=== PATIENT | male | born 1940 | race Caucasian/White ===

== ENCOUNTER 2016-11-06 11:28 | Inpatient (IN) | payer MEDICARE, BC ==
[2016-11-06] MEDS ORDERED: Zolpidem 5 MG Tab PO PRN (17:25)
[2016-11-06] MEDS ORDERED: Albuterol 6.7 GM Inhaler INH PRN (17:29)
[2016-11-06] MEDS ORDERED: Nitroglycerin 0.4 MG Tab.SL SL PRN (17:30)
--- NOTE | 2016-11-06 17:36 | PCM.HP ---
H&P History of Present Illness - General Date of Service: 11/06/16 Admit Problem/Dx: Admission Diagnosis/Problem Admission Diagnosis/Problem Weakness Source of Information: Patient - History of Present Illness Initial Comments - Free Text/Narative: transfer from acute care hospital status post left knee surgery Has moderate pain in the left knee, since the surgery, worse with movements, better with rest. associated left leg swelling. - Related Data Allergies/Adverse Reactions: Allergies Allergy/AdvReac Type Severity Reaction Status Date / Time cefuroxime [From Ceftin] Allergy Mild Nausea and Verified 11/06/16 12:58 Vomiting antifungal cream Allergy Hives Uncoded 11/06/16 12:58 dust mite extract Allergy Shortness Uncoded 11/06/16 12:58 of Breath seasonal Allergy Shortness Uncoded 11/06/16 12:58 of Breath Home Medications: Home Meds Allopurinol [Allopurinol] 300 mg PO DAILY 02/12/15 [History] Furosemide [Furosemide] 40 mg PO DAILY 02/12/15 [History] Indapamide [Indapamide] 1 tab PO DAILY 02/12/15 [History] Insulin Aspart [NovoLOG] 10 unit SQ ASDIRECTED 02/12/15 [History] Insulin Detemir [Levemir] 40 unit SQ BID 02/12/15 [History] Lisinopril/Hydrochlorothiazide [Lisinopril-Hctz 20-12.5 mg Tab] 1 tab PO DAILY 02/12/15 [History] Metoprolol Succinate [Toprol XL] 50 mg PO DAILY 02/12/15 [History] Simvastatin [Simvastatin] 40 mg PO DAILY 02/12/15 [History] Spironolactone [Spironolactone] 1 tab PO DAILY 02/12/15 [History] Tamsulosin HCl [Tamsulosin HCl] 1 cap PO BEDTIME 02/12/15 [History] metFORMIN [Glucophage] 1 tab PO BID 02/12/15 [History] Rivaroxaban [Xarelto] 10 mg PO DAILY 10/21/15 [History] Fluticasone Propionate [Flovent HFA 110 MCG] 2 puff INH BID 08/03/16 [History] Ascorbic Acid [Vitamin C] 100 mg PO DAILY 11/06/16 [History] Calcium Carb & Citrate/Vit D3 [Calcium + D3 ER Tablet] 1 tab PO DAILY 11/06/16 [ History] Ferrous Sulfate [Iron] 1 tab PO DAILY 11/06/16 [History] Fluticasone Propionate [Flonase] 1 spray INH DAILY 11/06/16 [History] Gabapentin [Neurontin] 300 mg PO BEDTIME 11/06/16 [History] Insulin Aspart [NovoLOG] 10 units SUBCUT TID 11/06/16 [History] Lutein/Minerals/Vit A,C & E [Ocuvite] 1 tab PO DAILY 11/06/16 [History] Melatonin 1 mg PO BEDTIME PRN 11/06/16 [History] Morphine [MS Contin] 15 mg PO Q12HR 11/06/16 [History] Nitroglycerin [Nitrostat] 0.4 mg SL .Q5MIN 11/06/16 [History] Sennosides [Senna] 1 tab PO BID 11/06/16 [History] metFORMIN [Glucophage XR] 500 mg PO WITHDINNER 11/06/16 [History] Past Medical History HEENT History: Reports: Cataract, Glaucoma, Hard of Hearing, Impaired Vision Cardiovascular History: Reports: Hypertension, Stents Respiratory History: Reports: Asthma, COPD Genitourinary History: Reports: Diabetic Nephropathy Musculoskeletal History: Reports: Arthritis, Fracture Neurological History: Reports: None Psychiatric History: Reports: None Endocrine/Metabolic History: Reports: Diabetes, Type II Hematologic History: Reports: Blood Transfusion(s) Immunologic History: Reports: None Oncologic (Cancer) History: Reports: None Dermatologic History: Reports: None - Infectious Disease History Infectious Disease History: Reports: Chicken Pox - Past Surgical History Head Surgeries/Procedures: Reports: None HEENT Surgical History: Reports: Cataract Surgery Cardiovascular Surgical History: Reports: None Respiratory Surgical History: Reports: Lung Biopsies GI Surgical History: Reports: Colonoscopy, Hernia Repair/Other Neurological Surgical History: Reports: Scoliosis Oncologic Surgical History: Reports: None Dermatological Surgical History: Reports: None Social & Family History - Family History Family Medical History: Noncontributory - Tobacco Use Smoking Status *Q: Former Smoker Years of Tobacco use: 30 Packs/Tins Daily: 2 Used Tobacco, but Quit: Yes Month Tobacco Last Used: May Second Hand Smoke Exposure: Yes - Caffeine Use Caffeine Use: Reports: Coffee - Alcohol Use Days Per Week of Alcohol Use: 7 Number of Drinks Per Day: 1 Total Drinks Per Week: 7 Date of Last Drink: 10/25/16 - Recreational Drug Use Recreational Drug Use: No H&P Review of Systems - Review of Systems: Review Of Systems: See Below General: Denies: Fever Cardiovascular: Denies: Chest Pain Gastrointestinal: Denies: Abdominal Pain Psychiatric: Denies: Confusion Exam - Exam Exam: See Below - Vital Signs Vital Signs: Last Vital Signs Temp 37.6 C 11/06/16 16:18 Pulse 86 11/06/16 16:18 Resp 20 11/06/16 16:18 BP 135/51 L 11/06/16 16:18 Pulse Ox 98 11/06/16 16:18 Weight: 98.974 kg - Exam Quality Assessment: No: Supplemental Oxygen General: Alert, Oriented Neck: Supple Lungs: Normal Respiratory Effort, Decreased Breath Sounds, Wheezing (mild bilateral) Cardiovascular: Regular Rate, Regular Rhythm Abdomen: Normal Bowel Sounds, Soft Extremities: Edema (left leg1+) Skin: Warm, Other (left knee dressing) Neuro Extensive - Mental Status: Alert, Oriented x3, Normal Mood/Affect, Normal Cognition *Q Meaningful Use (ADM) - VTE *Q VTE Criteria *Q: - Stroke *Q Stroke Criteria *Q: - AMI *Q AMI Criteria *Q: - Problem List (1) Status post knee surgery SNOMED Code(s): 142149419, 221972574 ICD Code: Z98.890 - OTHER SPECIFIED POSTPROCEDURAL STATES Status: Acute Current Visit: Yes (2) Diabetes SNOMED Code(s): 49783613 ICD Code: E11.9 - TYPE 2 DIABETES MELLITUS WITHOUT COMPLICATIONS Status: Acute Current Visit: Yes (3) Coronary artery disease SNOMED Code(s): 80819563 ICD Code: I25.10 - ATHSCL HEART DISEASE OF [place] CORONARY ARTERY W/O ANG PCTRS Status: Acute Current Visit: Yes (4) COPD (chronic obstructive pulmonary disease) SNOMED Code(s): 63484702 ICD Code: J44.9 - CHRONIC OBSTRUCTIVE PULMONARY DISEASE, UNSPECIFIED Status : Acute Current Visit: Yes Problem List Initiated/Reviewed/Updated: Yes Orders Last 24hrs: Active Orders 24 hr Category Date Time Status Patient Status [ADT] Routine ADT 11/06/16 17:25 Active Antiembolic Devices [RC] PER UNIT ROUTINE Care 11/06/16 17:27 Active Oxygen Therapy [RC] PRN Care 11/06/16 17:25 Active RT Post Treatment Assessment [RC] Click To Edit Care 11/06/16 17:29 Active RT Pre-Treatment Assessment [RC] Click To Edit Care 11/06/16 17:29 Active Up With Assistance [RC] ASDIRECTED Care 11/06/16 17:25 Active VTE/DVT Education [RC] PER UNIT ROUTINE Care 11/06/16 17:25 Active Vital Signs [RC] QSHIFT Care 11/06/16 17:25 Active OT Evaluation and Treatment [CONS] Routine Cons 11/06/16 17:25 Active PT Evaluation and Treatment [CONS] Routine Cons 11/06/16 17:25 Active Consistent Carbohydrate Diet [DIET] Diet 11/06/16 Breakfast Active Acetaminophen [Tylenol] Med 11/06/16 17:25 Active 650 mg PO Q4H PRN Albuterol [Proventil HFA] Med 11/06/16 17:29 Ordered 6.7 gm INH Q4H PRN Allopurinol [Zyloprim] Med 11/07/16 09:00 Ordered 300 mg PO DAILY Ascorbic Acid [Vitamin C] Med 11/07/16 09:00 Ordered 100 mg PO DAILY Ferrous Sulfate Med 11/07/16 09:00 Ordered DOSE mg PO DAILY Fluticasone Propionate [Flonase] Med 11/07/16 09:00 Ordered DOSE gm NASBOTH DAILY Fluticasone Propionate [Flovent HFA 110 MCG] Med 11/06/16 21:00 Ordered 2 puff INH BID Furosemide [Lasix] Med 11/07/16 09:00 Ordered 40 mg PO DAILY Gabapentin [Neurontin] Med 11/06/16 21:00 Ordered 300 mg PO BEDTIME Indapamide Med 11/07/16 09:00 Ordered DOSE mg PO DAILY Insulin Aspart [NovoLOG] Med 11/06/16 21:00 Ordered 10 unit SUBCUT TID Insulin Detemir Med 11/06/16 21:00 Ordered 40 unit SQ BID Lisinopril/Hydrochlorothiazide [Lisinopril-Hctz 20-12.5 Med 11/07/16 09:00 Ordered mg Tab] 1 tab PO DAILY Lutein/Minerals/Vit A,C & E [I-[place]] Med 11/07/16 09:00 Ordered DOSE each PO DAILY Metoprolol Succinate [Toprol XL] Med 11/07/16 09:00 Ordered 50 mg PO DAILY Mometasone/Formoterol [Dulera 200-5 MCG] Med 11/06/16 18:00 Ordered 2 puff IH BIDRT Morphine [MS Contin] Med 11/06/16 21:00 Ordered 15 mg PO Q12HR Nitroglycerin [Nitrostat] Med 11/06/16 17:30 Ordered 0.4 mg SL .Q5MIN Rivaroxaban [Xarelto] Med 11/07/16 09:00 Ordered 10 mg PO DAILY Sennosides [Senna] Med 11/06/16 21:00 Ordered 1 tab PO BID Simvastatin [Zocor] Med 11/07/16 09:00 Ordered 40 mg PO DAILY Spironolactone [Aldactone] Med 11/07/16 09:00 Ordered DOSE mg PO DAILY Tamsulosin [Flomax] Med 11/06/16 21:00 Ordered DOSE mg PO BEDTIME Zolpidem [Ambien] Med 11/06/16 17:25 Ordered 5 mg PO BEDTIME PRN oxyCODONE Med 11/06/16 17:23 Ordered 5 mg PO Q6H PRN Antiembolic Hose [OM.PC] Per Unit Routine Oth 11/06/16 17:26 Ordered Resuscitation Status Routine Resus Stat 11/06/16 17:25 Ordered Medication Orders Acetaminophen (Tylenol) 650 mg PO Q4H PRN PRN Reason: Pain (Mild 1-3)/fever Albuterol (Proventil Hfa) 6.7 gm INH Q4H PRN PRN Reason: Shortness of Breath Allopurinol (Zyloprim) 300 mg PO DAILY [facility] Ferrous Sulfate (Ferrous Sulfate) mg PO DAILY [facility] Fluticasone Propionate (Flonase) gm NASBOTH DAILY [facility] Furosemide (Lasix) 40 mg PO DAILY [facility] Gabapentin (Neurontin) 300 mg PO BEDTIME [facility] Indapamide (Indapamide) mg PO DAILY [facility] Insulin Aspart (Novolog) 10 unit SUBCUT TID [facility] Metoprolol Succinate (Toprol Xl) 50 mg PO DAILY [facility] Mometasone Furoate/Formoterol Fumar (Dulera 200-5 Mcg) 2 puff IH BIDRT [facility] Morphine Sulfate (Ms Contin) 15 mg PO Q12HR [facility] Multivitamins/Minerals (I-[place]) each PO DAILY [facility] Nitroglycerin (Nitrostat) 0.4 mg SL .Q5MIN [facility] Non-Formulary Medication (Ascorbic Acid [Vitamin C]) 100 mg PO DAILY [facility] Non-Formulary Medication (Fluticasone Propionate [Flovent Hfa 110 Mcg]) 2 puff INH BID [facility] Non-Formulary Medication (Insulin Detemir) 40 unit SQ BID [facility] Non-Formulary Medication (Lisinopril/Hydrochlorothiazide [Lisinopril-Hctz 20- 12.5 Mg Tab]) 1 tab PO DAILY [facility] Non-Formulary Medication (Sennosides [Senna]) 1 tab PO BID [facility] Oxycodone HCl (Oxycodone) 5 mg PO Q6H PRN PRN Reason: Pain Rivaroxaban (Xarelto) 10 mg PO DAILY [facility] Simvastatin (Zocor) 40 mg PO DAILY [facility] Spironolactone (Aldactone) mg PO DAILY [facility] Tamsulosin HCl (Flomax) mg PO BEDTIME [facility] Zolpidem Tartrate (Ambien) 5 mg PO BEDTIME PRN PRN Reason: Sleep Assessment/Plan Comment:: Status post left knee surgery Pain management with MSContin 15 mg BID, Neurontin, and p.r.n. oxycodone as needed DVT prophylaxis with xarelto COPD Use dulera Albuterol inhaler as needed Chronic kidney disease Baseline creatinine 1.5 Follow periodically, continue diuretics Coronary artery disease Resume aspirin when stopping the xarelto Treat with statin, metoprolol Diabetes Hold metformin Manage with Levemir Meal time time aspart Use supplemental insulin as needed Hypertension Manage with Lisinopril, metoprolol and hydrochlorothiazide, spironolactone Postoperative acute blood loss anemia Received a blood transfusion prior to admission to swing bed Recheck hemoglobin periodically
[2016-11-06] MEDS: Formoterol/Mometasone 200-5 MCG 8.8 GM Inhaler IH SCH (17:49)
[2016-11-06] MEDS: Insulin Aspart 100 Units/ML 3 ML Pen SUBCUT SCH (17:50)
[2016-11-06] MEDS ORDERED: SENNOSIDES PO SCH (21:00)
[2016-11-06] MEDS ORDERED: FLUTICASONE PROPIONATE INH SCH (21:00)
[2016-11-06] MEDS: Tamsulosin 0.4 MG Cap.ER PO SCH (21:43)
[2016-11-06] MEDS: Morphine 15 MG Tab.ER PO SCH (21:43)
[2016-11-06] MEDS: Gabapentin 300 MG Cap PO SCH (21:43)
[2016-11-06] MEDS: Simvastatin 40 MG Tab PO SCH (21:44)
[2016-11-06] MEDS: Insulin Detemir 100 Units/ML 3 ML Pen SUBCUT SCH (21:45)
[2016-11-06] MEDS: Acetaminophen 325 MG Tab PO PRN (21:51)
[2016-11-07] MEDS: oxyCODONE 5 MG Tab PO PRN ×3 (03:04→17:11)
[2016-11-07] MEDS: Formoterol/Mometasone 200-5 MCG 8.8 GM Inhaler IH SCH ×2 (07:44→17:15)
[2016-11-07] MEDS: Acetaminophen 325 MG Tab PO PRN ×3 (07:55→21:05)
[2016-11-07] MEDS ORDERED: ASCORBIC ACID 100 MG PO SCH (09:00)
[2016-11-07] MEDS: Insulin Aspart 100 Units/ML 3 ML Pen SUBCUT SCH ×6 (09:08→17:14)
[2016-11-07] MEDS: Insulin Detemir 100 Units/ML 3 ML Pen SUBCUT SCH ×2 (09:12→21:02)
[2016-11-07] MEDS: Ferrous Sulfate 325 MG Tab PO SCH (09:15)
[2016-11-07] MEDS: Indapamide 2.5 MG Tab PO SCH (09:15)
[2016-11-07] MEDS: Allopurinol 300 MG Tab PO SCH (09:16)
[2016-11-07] MEDS: Rivaroxaban 10 MG Tab PO SCH (09:16)
[2016-11-07] MEDS: Spironolactone 25 MG Tab PO SCH (09:17)
[2016-11-07] MEDS: Morphine 15 MG Tab.ER PO SCH ×2 (09:17→21:00)
[2016-11-07] MEDS: Lutein/Minerals/Vit A,C & E Tab PO SCH (09:17)
[2016-11-07] MEDS: Furosemide 40 MG Tab PO SCH (09:17)
[2016-11-07] MEDS: Lisinopril 20 MG Tab PO SCH (09:20)
[2016-11-07] MEDS: Hydrochlorothiazide 25 MG Tab PO SCH (09:21)
[2016-11-07] MEDS: Metoprolol Succinate 50 MG Tab.ER PO SCH (09:21)
[2016-11-07] MEDS: Fluticasone Propionate Nasal Spray 16 GM Bottle NASBOTH SCH (09:23)
[2016-11-07] MEDS: Tamsulosin 0.4 MG Cap.ER PO SCH (21:00)
[2016-11-07] MEDS: Gabapentin 300 MG Cap PO SCH (21:01)
[2016-11-07] MEDS: Simvastatin 40 MG Tab PO SCH (21:01)
[2016-11-08] MEDS: oxyCODONE 5 MG Tab PO PRN ×3 (02:35→21:35)
[2016-11-08] MEDS: Formoterol/Mometasone 200-5 MCG 8.8 GM Inhaler IH SCH ×2 (07:54→17:53)
[2016-11-08] MEDS: Insulin Aspart 100 Units/ML 3 ML Pen SUBCUT SCH ×6 (08:11→17:54)
[2016-11-08] MEDS: Insulin Detemir 100 Units/ML 3 ML Pen SUBCUT SCH ×2 (08:12→21:36)
[2016-11-08] MEDS: Metoprolol Succinate 50 MG Tab.ER PO SCH (08:43)
[2016-11-08] MEDS: Allopurinol 300 MG Tab PO SCH (08:43)
[2016-11-08] MEDS: Ferrous Sulfate 325 MG Tab PO SCH (08:43)
[2016-11-08] MEDS: Spironolactone 25 MG Tab PO SCH (08:43)
[2016-11-08] MEDS: Morphine 15 MG Tab.ER PO SCH ×2 (08:44→21:34)
[2016-11-08] MEDS: Lisinopril 20 MG Tab PO SCH (08:44)
[2016-11-08] MEDS: Hydrochlorothiazide 25 MG Tab PO SCH (08:46)
[2016-11-08] MEDS: Lutein/Minerals/Vit A,C & E Tab PO SCH (08:46)
[2016-11-08] MEDS: Furosemide 40 MG Tab PO SCH (08:46)
[2016-11-08] MEDS: Rivaroxaban 10 MG Tab PO SCH (08:46)
[2016-11-08] MEDS: Indapamide 2.5 MG Tab PO SCH (08:46)
[2016-11-08] MEDS: Fluticasone Propionate Nasal Spray 16 GM Bottle NASBOTH SCH (08:48)
[2016-11-08] MEDS: Acetaminophen 325 MG Tab PO PRN ×2 (09:48→20:16)
[2016-11-08] MEDS: Simvastatin 40 MG Tab PO SCH (21:33)
[2016-11-08] MEDS: Gabapentin 300 MG Cap PO SCH (21:35)
[2016-11-08] MEDS: Tamsulosin 0.4 MG Cap.ER PO SCH (21:36)
[2016-11-09] MEDS: oxyCODONE 5 MG Tab PO PRN ×3 (03:42→17:24)
[2016-11-09] MEDS: Acetaminophen 325 MG Tab PO PRN (03:43)
[2016-11-09] MEDS: Formoterol/Mometasone 200-5 MCG 8.8 GM Inhaler IH SCH ×2 (06:16→17:26)
[2016-11-09] MEDS: Insulin Detemir 100 Units/ML 3 ML Pen SUBCUT SCH ×2 (09:34→22:08)
[2016-11-09] MEDS: Insulin Aspart 100 Units/ML 3 ML Pen SUBCUT SCH ×6 (09:35→17:30)
[2016-11-09] MEDS: Rivaroxaban 10 MG Tab PO SCH (09:37)
[2016-11-09] MEDS: Lutein/Minerals/Vit A,C & E Tab PO SCH (09:37)
[2016-11-09] MEDS: Spironolactone 25 MG Tab PO SCH (09:37)
[2016-11-09] MEDS: Ferrous Sulfate 325 MG Tab PO SCH (09:37)
[2016-11-09] MEDS: Furosemide 40 MG Tab PO SCH (09:37)
[2016-11-09] MEDS: Allopurinol 300 MG Tab PO SCH (09:37)
[2016-11-09] MEDS: Hydrochlorothiazide 25 MG Tab PO SCH (09:37)
[2016-11-09] MEDS: Morphine 15 MG Tab.ER PO SCH ×2 (09:38→22:02)
[2016-11-09] MEDS: Metoprolol Succinate 50 MG Tab.ER PO SCH (09:47)
[2016-11-09] MEDS: Indapamide 2.5 MG Tab PO SCH (09:48)
[2016-11-09] MEDS: Lisinopril 20 MG Tab PO SCH (09:48)
[2016-11-09] MEDS: Fluticasone Propionate Nasal Spray 16 GM Bottle NASBOTH SCH (09:51)
[2016-11-09] MEDS: Simvastatin 40 MG Tab PO SCH (22:03)
[2016-11-09] MEDS: Tamsulosin 0.4 MG Cap.ER PO SCH (22:03)
[2016-11-09] MEDS: Gabapentin 300 MG Cap PO SCH (22:04)
[2016-11-09] MEDS: MELATONIN 10 MG PO PRN (22:06)
[2016-11-10] MEDS: Formoterol/Mometasone 200-5 MCG 8.8 GM Inhaler IH SCH ×2 (06:18→18:17)
[2016-11-10 07:05] LABS: CHLORIDE,CL 95 mmol/L (101-111); SODIUM,NA 134 mmol/L (135-145)
[2016-11-10] MEDS: Morphine 15 MG Tab.ER PO SCH ×2 (09:01→20:18)
[2016-11-10] MEDS: Lutein/Minerals/Vit A,C & E Tab PO SCH (09:02)
[2016-11-10] MEDS: Allopurinol 300 MG Tab PO SCH (09:03)
[2016-11-10] MEDS: Rivaroxaban 10 MG Tab PO SCH (09:03)
[2016-11-10] MEDS: Ferrous Sulfate 325 MG Tab PO SCH (09:03)
[2016-11-10] MEDS: Spironolactone 25 MG Tab PO SCH (09:04)
[2016-11-10] MEDS: Insulin Aspart 100 Units/ML 3 ML Pen SUBCUT SCH ×6 (09:04→18:13)
[2016-11-10] MEDS: Fluticasone Propionate Nasal Spray 16 GM Bottle NASBOTH SCH (09:06)
[2016-11-10] MEDS: Furosemide 40 MG Tab PO SCH (09:07)
[2016-11-10] MEDS: Hydrochlorothiazide 25 MG Tab PO SCH (09:07)
[2016-11-10] MEDS: Metoprolol Succinate 50 MG Tab.ER PO SCH (09:08)
[2016-11-10] MEDS: Indapamide 2.5 MG Tab PO SCH (09:08)
[2016-11-10] MEDS: Insulin Detemir 100 Units/ML 3 ML Pen SUBCUT SCH ×2 (09:09→21:34)
[2016-11-10] MEDS: Lisinopril 20 MG Tab PO SCH (09:09)
[2016-11-10] MEDS: oxyCODONE 5 MG Tab PO PRN ×2 (10:32→16:41)
--- NOTE | 2016-11-10 12:24 | PCM.PN ---
- General Info Date of Service: 11/10/16 Admission Dx/Problem (Free Text): Admission Diagnosis/Problem Admission Diagnosis/Problem Weakness Subjective Update: 76-year-old gentleman status post left knee surgery. Admitted to swing bed with weakness. The patient had Welch catheter for urinary retention and difficulty with ambulation. He continues to have moderate pain in the left knee, worse with activity, better with rest. Has been using morphine and oxycodone. Never episodes of confusion during the night, but clears up during the day. No chest pain, no shortness of breath, no fever or chills. Functional Status: Reports: tolerating diet, ambulating - Review of Systems General: Reports: Weakness. Denies: Fever Pulmonary: Denies: shortness of breath, wheezing Cardiovascular: Denies: Chest Pain Gastrointestinal: Denies: Abdominal pain Genitourinary: Reports: other (welch) - Patient Data Vitals - most recent: Last Vital Signs Temp 37.2 C 11/10/16 08:15 Pulse 67 11/10/16 09:08 Resp 20 11/10/16 08:15 BP 150/56 H 11/10/16 09:09 Pulse Ox 97 11/10/16 08:15 Weight - most recent: 98.974 kg I&O - last 24 hours: Intake & Output 11/09/16 11/10/16 11/10/16 22:59 06:59 14:59 Intake Total 800 600 Output Total 1650 1300 Balance -850 -700 Lab Results last 24 hrs: Laboratory Results - last 24 hr 11/09/16 11/09/16 11/10/16 Range/Units 17:12 20:56 06:20 WBC 6.2 (5.0-10.0) 10^3/uL RBC 3.13 L (4.6-6.2) 10^6/uL Hgb 9.6 L (14.0-18.0) g/dL Hct 29.6 L (40.0-54.0) % MCV 94.6 (80-100) fL MCH 30.7 (27.0-34.0) pg MCHC 32.4 L (33.0-35.0) g/dL Plt Count 203 (150-450) 10^3/uL Neut % (Auto) 66.4 (42.2-75.2) % Lymph % (Auto) 16.9 L (20.5-50.1) % [place] % (Auto) 12.7 H (2-8) % Eos % (Auto) 2.4 (1.0-3.0) % Baso % (Auto) 1.6 H (0.0-1.0) % Add Manual Diff Yes Neutrophils % (Manual) 78 % Lymphocytes % (Manual) 15 % Monocytes % (Manual) 6 % Eosinophils % (Manual) 1 % Sodium (135-145) mmol/L Potassium (3.6-5.0) mmol/L Chloride (101-111) mmol/L Carbon Dioxide (21.0-31.0) mmol/L Anion Gap BUN (7-18) mg/dL Creatinine (0.6-1.3) mg/dL Est Cr Clr Drug Dosing mL/min Estimated GFR (MDRD) Glucose (74-105) mg/dL POC Glucose 104 264 H (83-110) mg/dl Calcium (8.4-10.2) mg/dl Total Bilirubin (0.2-1.0) mg/dL Direct Bilirubin (0.0-0.2) mg/dL Indirect Bilirubin AST (10-42) IU/L ALT (10-60) IU/L Alkaline Phosphatase (42-121) IU/L Lactate Dehydrogenase (91-180) IU/L Total Protein (6.7-8.2) g/dl Albumin (3.2-5.5) g/dl Globulin Albumin/Globulin Ratio 11/10/16 11/10/16 11/10/16 Range/Units 06:20 07:42 11:42 WBC (5.0-10.0) 10^3/uL RBC (4.6-6.2) 10^6/uL Hgb (14.0-18.0) g/dL Hct (40.0-54.0) % MCV (80-100) fL MCH (27.0-34.0) pg MCHC (33.0-35.0) g/dL Plt Count (150-450) 10^3/uL Neut % (Auto) (42.2-75.2) % Lymph % (Auto) (20.5-50.1) % [place] % (Auto) (2-8) % Eos % (Auto) (1.0-3.0) % Baso % (Auto) (0.0-1.0) % Add Manual Diff Neutrophils % (Manual) % Lymphocytes % (Manual) % Monocytes % (Manual) % Eosinophils % (Manual) % Sodium 134 L (135-145) mmol/L Potassium 4.1 (3.6-5.0) mmol/L Chloride 95 L (101-111) mmol/L Carbon Dioxide 27.0 (21.0-31.0) mmol/L Anion Gap 16.1 BUN 29 H (7-18) mg/dL Creatinine 1.0 (0.6-1.3) mg/dL Est Cr Clr Drug Dosing 63.88 mL/min Estimated GFR (MDRD) > 60 Glucose 229 H (74-105) mg/dL POC Glucose 246 H 296 H (83-110) mg/dl Calcium 8.4 (8.4-10.2) mg/dl Total Bilirubin 0.7 (0.2-1.0) mg/dL Direct Bilirubin 0.2 (0.0-0.2) mg/dL Indirect Bilirubin 0.5 AST 39 (10-42) IU/L ALT 45 (10-60) IU/L Alkaline Phosphatase 80 (42-121) IU/L Lactate Dehydrogenase 188 H (91-180) IU/L Total Protein 6.5 L (6.7-8.2) g/dl Albumin 2.9 L (3.2-5.5) g/dl Globulin 3.6 Albumin/Globulin Ratio 0.81 Med Orders - Current: Current Medications Acetaminophen (Tylenol) 650 mg PO Q4H PRN PRN Reason: Pain (Mild 1-3)/fever Last Admin: 11/09/16 03:43 Dose: 650 mg Albuterol (Proventil Hfa) 0 gm INH Q4H PRN PRN Reason: Shortness of Breath Allopurinol (Zyloprim) 300 mg PO DAILY [facility] Last Admin: 11/10/16 09:03 Dose: 300 mg Ferrous Sulfate (Ferrous Sulfate) 325 mg PO DAILY [facility] Last Admin: 11/10/16 09:03 Dose: 325 mg Fluticasone Propionate (Flonase) 0 gm NASBOTH DAILY [facility] Last Admin: 11/10/16 09:06 Dose: 1 spray Furosemide (Lasix) 40 mg PO DAILY [facility] Last Admin: 11/10/16 09:07 Dose: 40 mg Gabapentin (Neurontin) 300 mg PO BEDTIME [facility] Last Admin: 11/09/16 22:04 Dose: 300 mg Hydrochlorothiazide (Hydrochlorothiazide) 12.5 mg PO DAILY [facility] Last Admin: 11/10/16 09:07 Dose: 12.5 mg Indapamide (Indapamide) 2.5 mg PO DAILY [facility] Last Admin: 11/10/16 09:08 Dose: 2.5 mg Insulin Aspart (Novolog) 10 unit SUBCUT TIDMEALS [facility] Last Admin: 11/10/16 09:04 Dose: 10 units Insulin Aspart (Novolog) 0 unit SUBCUT TIDAC [facility] PRN Reason: Protocol Last Admin: 11/10/16 09:05 Dose: 4 units Insulin Detemir (Levemir) 45 unit SUBCUT BID [facility] Lisinopril (Prinivil) 20 mg PO DAILY [facility] Last Admin: 11/10/16 09:09 Dose: 20 mg Metoprolol Succinate (Toprol Xl) 50 mg PO DAILY [facility] Last Admin: 11/10/16 09:08 Dose: 50 mg Mometasone Furoate/Formoterol Fumar (Dulera 200-5 Mcg) 2 puff IH BIDRT [facility] Last Admin: 11/10/16 06:18 Dose: 2 puff Morphine Sulfate (Ms Contin) 15 mg PO Q12HR [facility] Last Admin: 11/10/16 09:01 Dose: 15 mg Multivitamins/Minerals (I-[place]) 1 each PO DAILY [facility] Last Admin: 11/10/16 09:02 Dose: 1 each Nitroglycerin (Nitrostat) 0.4 mg SL .Q5MIN PRN PRN Reason: Chest Pain Nf Med 1 Each ( Melatonin [Melatonin ] 10 Mg) *Own Med 10 mg PO BEDTIME PRN PRN Reason: Sleep Last Admin: 11/09/16 22:06 Dose: 10 mg Oxycodone HCl (Oxycodone) 5 mg PO Q6H PRN PRN Reason: Pain Last Admin: 11/10/16 10:32 Dose: 5 mg Rivaroxaban (Xarelto) 10 mg PO DAILY [facility] Last Admin: 11/10/16 09:03 Dose: 10 mg Simvastatin (Zocor) 40 mg PO BEDTIME [facility] Last Admin: 11/09/16 22:03 Dose: 40 mg Spironolactone (Aldactone) 25 mg PO DAILY [facility] Last Admin: 11/10/16 09:04 Dose: 25 mg Tamsulosin HCl (Flomax) 0.4 mg PO BEDTIME [facility] Last Admin: 11/09/16 22:03 Dose: 0.4 mg Discontinued Medications Insulin Detemir (Levemir) 40 unit SUBCUT BID [facility] Last Admin: 11/10/16 09:09 Dose: 40 units Non-Formulary Medication (Ascorbic Acid [Vitamin C]) 100 mg PO DAILY [facility] Non-Formulary Medication (Fluticasone Propionate [Flovent Hfa 110 Mcg]) 2 puff INH BID [facility] Non-Formulary Medication (Sennosides [Senna]) 1 tab PO BID [facility] Zolpidem Tartrate (Ambien) 5 mg PO BEDTIME PRN PRN Reason: Sleep - Exam Quality Assessment: No: supplemental oxygen General: alert, oriented Neck: supple Lungs: Clear to auscultation, Normal respiratory effort Cardiovascular: Regular Rate, Regular Rhythm (Male) Exam: Other (welch) Extremities: no edema Skin: warm, dry, intact Psy/Mental Status: alert, normal affect, normal mood - Problem List & Annotations (1) Status post knee surgery SNOMED Code(s): 334829708, 353369523 Code(s): Z98.890 - OTHER SPECIFIED POSTPROCEDURAL STATES Status: Acute Current Visit: Yes (2) Diabetes SNOMED Code(s): 56367855 Code(s): E11.9 - TYPE 2 DIABETES MELLITUS WITHOUT COMPLICATIONS Status: Acute Current Visit: Yes (3) Coronary artery disease SNOMED Code(s): 04840099 Code(s): I25.10 - ATHSCL HEART DISEASE OF [place] CORONARY ARTERY W/O ANG PCTRS Status: Acute Current Visit: Yes (4) COPD (chronic obstructive pulmonary disease) SNOMED Code(s): 73417113 Code(s): J44.9 - CHRONIC OBSTRUCTIVE PULMONARY DISEASE, UNSPECIFIED Status : Acute Current Visit: Yes - Problem List Review Problem List Initiated/Reviewed/Updated: Yes - My Orders Last 24 Hours: My Active Orders 11/09/16 16:31 Melatonin [Melatonin] 10 mg PO BEDTIME PRN 11/10/16 06:20 FOLATE [REF] AM IRON PNL (FE, TIBC, [place], %SAT) [REF] AM VITAMIN B12 [REF] AM 11/10/16 12:09 Peripheral IV Discontinue [OM.PC] Routine 11/10/16 12:18 Urinary Catheter Removal [RC] Per Unit Routine Insulin Detemir [Levemir] 45 unit SUBCUT BID - Plan Plan:: Status post left knee surgery Pain management with MSContin 15 mg BID, Neurontin, and p.r.n. oxycodone as needed DVT prophylaxis with xarelto COPD Use dulera Albuterol inhaler as needed Chronic kidney disease Baseline creatinine 1.5 Follow periodically, continue diuretics Coronary artery disease Resume aspirin when stopping the xarelto Treat with statin, metoprolol Diabetes Uncontrolled Hold metformin Increase Levemir Meal time time aspart Use supplemental insulin as needed Hypertension Manage with Lisinopril, metoprolol and hydrochlorothiazide, spironolactone Postoperative acute blood loss anemia Received a blood transfusion prior to admission to swing bed Recheck hemoglobin periodically Check iron, folate, B12 Urinary retention Will try to remove Welch catheter now Follow for recurrence retention Confusion at night Likely delirium secondary to hospital stay and narcotic medications Try to decrease narcotics as pain is improving Discussed with daughter at bedside
[2016-11-10] MEDS: Acetaminophen 325 MG Tab PO PRN (14:55)
[2016-11-10] MEDS: Gabapentin 300 MG Cap PO SCH (20:16)
[2016-11-10] MEDS: Tamsulosin 0.4 MG Cap.ER PO SCH (20:17)
[2016-11-10] MEDS: Simvastatin 40 MG Tab PO SCH (20:17)
[2016-11-11] MEDS: oxyCODONE 5 MG Tab PO PRN ×3 (06:51→21:52)
[2016-11-11] MEDS: Insulin Aspart 100 Units/ML 3 ML Pen SUBCUT SCH ×6 (08:12→18:06)
[2016-11-11] MEDS: Formoterol/Mometasone 200-5 MCG 8.8 GM Inhaler IH SCH ×2 (08:17→19:25)
[2016-11-11] MEDS: Ferrous Sulfate 325 MG Tab PO SCH (09:19)
[2016-11-11] MEDS: Spironolactone 25 MG Tab PO SCH (09:19)
[2016-11-11] MEDS: Hydrochlorothiazide 25 MG Tab PO SCH (09:20)
[2016-11-11] MEDS: Lutein/Minerals/Vit A,C & E Tab PO SCH (09:22)
[2016-11-11] MEDS: Indapamide 2.5 MG Tab PO SCH (09:23)
[2016-11-11] MEDS: Rivaroxaban 10 MG Tab PO SCH (09:26)
[2016-11-11] MEDS: Metoprolol Succinate 50 MG Tab.ER PO SCH (09:27)
[2016-11-11] MEDS: Furosemide 40 MG Tab PO SCH (09:28)
[2016-11-11] MEDS: Allopurinol 300 MG Tab PO SCH (09:28)
[2016-11-11] MEDS: Morphine 15 MG Tab.ER PO SCH ×2 (09:29→20:25)
[2016-11-11] MEDS: Lisinopril 20 MG Tab PO SCH (09:31)
[2016-11-11] MEDS: Fluticasone Propionate Nasal Spray 16 GM Bottle NASBOTH SCH (09:35)
[2016-11-11] MEDS: Insulin Detemir 100 Units/ML 3 ML Pen SUBCUT SCH ×2 (09:36→21:26)
[2016-11-11] MEDS: Acetaminophen 325 MG Tab PO PRN ×2 (11:26→16:08)
[2016-11-11] MEDS: Simvastatin 40 MG Tab PO SCH (20:29)
[2016-11-11] MEDS: Tamsulosin 0.4 MG Cap.ER PO SCH (20:29)
[2016-11-11] MEDS: Gabapentin 300 MG Cap PO SCH (20:32)
[2016-11-11] MEDS: MELATONIN 10 MG PO PRN (21:53)
[2016-11-12] MEDS: oxyCODONE 5 MG Tab PO PRN ×2 (07:46→13:42)
[2016-11-12] MEDS: Insulin Aspart 100 Units/ML 3 ML Pen SUBCUT SCH ×6 (07:59→17:41)
[2016-11-12] MEDS: Formoterol/Mometasone 200-5 MCG 8.8 GM Inhaler IH SCH ×2 (08:03→17:40)
[2016-11-12] MEDS: Spironolactone 25 MG Tab PO SCH (09:34)
[2016-11-12] MEDS: Ferrous Sulfate 325 MG Tab PO SCH (09:35)
[2016-11-12] MEDS: Fluticasone Propionate Nasal Spray 16 GM Bottle NASBOTH SCH (09:35)
[2016-11-12] MEDS: Hydrochlorothiazide 25 MG Tab PO SCH (09:36)
[2016-11-12] MEDS: Indapamide 2.5 MG Tab PO SCH (09:37)
[2016-11-12] MEDS: Lutein/Minerals/Vit A,C & E Tab PO SCH (09:37)
[2016-11-12] MEDS: Furosemide 40 MG Tab PO SCH (09:38)
[2016-11-12] MEDS: Morphine 15 MG Tab.ER PO SCH ×2 (09:39→20:59)
[2016-11-12] MEDS: Lisinopril 20 MG Tab PO SCH (09:40)
[2016-11-12] MEDS: Metoprolol Succinate 50 MG Tab.ER PO SCH (09:40)
[2016-11-12] MEDS: Rivaroxaban 10 MG Tab PO SCH (09:41)
[2016-11-12] MEDS: Allopurinol 300 MG Tab PO SCH (09:42)
[2016-11-12] MEDS: Insulin Detemir 100 Units/ML 3 ML Pen SUBCUT SCH ×2 (09:43→21:08)
[2016-11-12] MEDS: Acetaminophen 325 MG Tab PO PRN ×2 (11:52→15:53)
[2016-11-12] MEDS: Tamsulosin 0.4 MG Cap.ER PO SCH (20:59)
[2016-11-12] MEDS: Gabapentin 300 MG Cap PO SCH (20:59)
[2016-11-12] MEDS: Simvastatin 40 MG Tab PO SCH (20:59)
[2016-11-13] MEDS: oxyCODONE 5 MG Tab PO PRN ×3 (06:04→21:00)
[2016-11-13] MEDS: Formoterol/Mometasone 200-5 MCG 8.8 GM Inhaler IH SCH ×2 (08:00→17:30)
[2016-11-13] MEDS: Insulin Aspart 100 Units/ML 3 ML Pen SUBCUT SCH ×6 (08:01→17:29)
[2016-11-13] MEDS: Indapamide 2.5 MG Tab PO SCH (09:48)
[2016-11-13] MEDS: Spironolactone 25 MG Tab PO SCH (09:48)
[2016-11-13] MEDS: Lutein/Minerals/Vit A,C & E Tab PO SCH (09:48)
[2016-11-13] MEDS: Morphine 15 MG Tab.ER PO SCH ×2 (09:49→20:52)
[2016-11-13] MEDS: Fluticasone Propionate Nasal Spray 16 GM Bottle NASBOTH SCH (09:49)
[2016-11-13] MEDS: Ferrous Sulfate 325 MG Tab PO SCH (09:49)
[2016-11-13] MEDS: Allopurinol 300 MG Tab PO SCH (09:50)
[2016-11-13] MEDS: Hydrochlorothiazide 25 MG Tab PO SCH (09:50)
[2016-11-13] MEDS: Furosemide 40 MG Tab PO SCH (09:50)
[2016-11-13] MEDS: Insulin Detemir 100 Units/ML 3 ML Pen SUBCUT SCH ×2 (09:51→21:34)
[2016-11-13] MEDS: Lisinopril 20 MG Tab PO SCH (09:51)
[2016-11-13] MEDS: Metoprolol Succinate 50 MG Tab.ER PO SCH (09:51)
[2016-11-13] MEDS: Rivaroxaban 10 MG Tab PO SCH (09:51)
[2016-11-13] MEDS: Tamsulosin 0.4 MG Cap.ER PO SCH (20:52)
[2016-11-13] MEDS: Simvastatin 40 MG Tab PO SCH (20:52)
[2016-11-13] MEDS: Gabapentin 300 MG Cap PO SCH (20:53)
[2016-11-14] MEDS: oxyCODONE 5 MG Tab PO PRN ×4 (03:10→23:18)
[2016-11-14] MEDS: Formoterol/Mometasone 200-5 MCG 8.8 GM Inhaler IH SCH ×2 (06:27→17:56)
[2016-11-14] MEDS: Insulin Aspart 100 Units/ML 3 ML Pen SUBCUT SCH ×6 (08:20→17:56)
[2016-11-14] MEDS: Insulin Detemir 100 Units/ML 3 ML Pen SUBCUT SCH ×2 (08:21→21:42)
[2016-11-14] MEDS: Hydrochlorothiazide 25 MG Tab PO SCH (08:22)
[2016-11-14] MEDS: Spironolactone 25 MG Tab PO SCH (08:22)
[2016-11-14] MEDS: Rivaroxaban 10 MG Tab PO SCH (08:23)
[2016-11-14] MEDS: Indapamide 2.5 MG Tab PO SCH (08:23)
[2016-11-14] MEDS: Lutein/Minerals/Vit A,C & E Tab PO SCH (08:23)
[2016-11-14] MEDS: Allopurinol 300 MG Tab PO SCH (08:24)
[2016-11-14] MEDS: Metoprolol Succinate 50 MG Tab.ER PO SCH (08:24)
[2016-11-14] MEDS: Furosemide 40 MG Tab PO SCH (08:24)
[2016-11-14] MEDS: Lisinopril 20 MG Tab PO SCH (08:24)
[2016-11-14] MEDS: Ferrous Sulfate 325 MG Tab PO SCH (08:24)
[2016-11-14] MEDS: Morphine 15 MG Tab.ER PO SCH ×2 (08:24→21:00)
[2016-11-14] MEDS: Fluticasone Propionate Nasal Spray 16 GM Bottle NASBOTH SCH (08:25)
[2016-11-14] MEDS: Acetaminophen 325 MG Tab PO PRN ×2 (13:12→19:54)
--- NOTE | 2016-11-14 13:34 | PN ---
DATE: 11/14/2016 SUBJECTIVE: Mr. Sebastien Huber is a 76-year-old male with a medical history significant for chronic obstructive pulmonary disease, chronic kidney disease, coronary artery disease, hypertension, and type 2 diabetes mellitus. He is status post left total knee arthroplasty and is admitted to swing bed for continued physical therapy and occupational therapy. For the last 24 hours, the patient continues to have pain to the left knee. He grades the pain as 4-5/10 in intensity, which gets aggravated on movement and ambulation relieved with pain medication, nonradiating type of pain, not associated with any nausea or vomiting. Denies any chest pain. No shortness of breath. No abdominal pain. No nausea. No vomiting. No diarrhea in the last 24 hours, REVIEW OF SYSTEMS: Cardiovascular, respiratory, gastrointestinal, neurology, constitutional were all evaluated. PHYSICAL EXAMINATION: Vital Signs: Temperature of 98.1, pulse of 68, respiratory rate of 20, blood pressure 131/43, saturating 95% on room air. General Appearance: The patient is well oriented to time, place, and person. Follows commands spontaneously. Cardiovascular System: S1, S2 heard with normal intensity. No gallops. Respiratory: Clear to auscultation bilaterally. No wheeze. No crepitations. Abdomen: Soft. Bowel sounds positive. Nontender. No rigidity. Extremities: No edema in bilateral lower extremities. Neurology: No gross focal neurological deficits. MEDICATIONS: Reviewed. Continue with: 1. Tylenol 650 every 4 hours as needed for pain. 2. Albuterol inhalation every 4 hours as needed. 3. Allopurinol 300 mg daily. 4. Ferrous sulfate 325 mg daily. 5. Lasix 40 mg daily. 6. Neurontin 300 mg at bedtime. 7. Hydrochlorothiazide 12.5 mg daily. 8. Indapamide 2.5 mg daily. 9. NovoLog 10 units 3 times a day. 10.Levemir 50 units twice a day. 11.Lisinopril 20 mg daily. 12.Metoprolol XL 50 mg daily. 13.Nitroglycerin 0.4 mg sublingual every 5 minutes as needed for chest pain. 14.Oxycodone 5 mg every 6 hours as needed for pain. 15.Xarelto 10 mg daily. 16.Zocor 40 mg at bedtime. 17.Spironolactone 25 mg daily. 18.Flomax 0.4 mg at bedtime. LABORATORY DATA: Reviewed. Blood sugar of 198-239 in the last 24 hours. ASSESSMENT: 1. Status post left total knee arthroplasty. 2. Hypertension. 3. Hyperlipidemia. 4. Type 2 diabetes mellitus, uncontrolled. 5. Coronary artery disease. 6. Chronic kidney disease. 7. Chronic obstructive pulmonary disease. 8. Acute anemia secondary to blood loss. PLAN: 1. Hypertension. The patient's blood pressure seems to be well controlled. He is noted to be on multiple antihypertensive medications. Continue the same. Try to avoid any hypotensive episodes. 2. Type 2 diabetes mellitus. He was on metformin at home. We had to hold the metformin while in the hospital, and he is currently on Levemir as he is noted to have elevated blood sugar. We will increase the Levemir to 50 units subcutaneous twice a day and continue with supplemental scale insulin NovoLog. He is also noted to be on NovoLog with each meals. Continue the same. Closely monitor fingersticks and try to normalize the blood sugar. 3. Chronic obstructive pulmonary disease, remains stable. Continue the current inhalation treatment. The patient has sleep apnea. He is advised to use the CPAP at night. 4. DVT prophylaxis. The patient is currently on Xarelto. Continue the same. 5. Pain. The patient continues to have pain. He is noted to be on multiple pain medications. The patient is advised to have some cold packs to the left knee as there is swelling noted on the left knee side. We will continue with physical therapy and occupational therapy. 6. Postoperative anemia. We will recheck hemoglobin in a.m. He is currently on iron supplement. 7. Chronic kidney disease. We will recheck a basic metabolic panel in a.m. as he is noted to be on diuretics. 8. Continue with physical therapy and occupational therapy while in the swing bed. [facility] /[id number]
[2016-11-14] MEDS: Tamsulosin 0.4 MG Cap.ER PO SCH (20:59)
[2016-11-14] MEDS: Simvastatin 40 MG Tab PO SCH (21:01)
[2016-11-14] MEDS: Gabapentin 300 MG Cap PO SCH (21:01)
[2016-11-15] MEDS: oxyCODONE 5 MG Tab PO PRN ×3 (05:20→20:26)
[2016-11-15] MEDS: Acetaminophen 325 MG Tab PO PRN ×2 (06:14→15:47)
[2016-11-15] MEDS: Fluticasone Propionate Nasal Spray 16 GM Bottle NASBOTH SCH (09:14)
[2016-11-15] MEDS: Formoterol/Mometasone 200-5 MCG 8.8 GM Inhaler IH SCH ×2 (09:14→17:37)
[2016-11-15] MEDS: Insulin Aspart 100 Units/ML 3 ML Pen SUBCUT SCH ×6 (09:14→17:38)
[2016-11-15] MEDS: Ferrous Sulfate 325 MG Tab PO SCH (09:16)
[2016-11-15] MEDS: Allopurinol 300 MG Tab PO SCH (09:16)
[2016-11-15] MEDS: Spironolactone 25 MG Tab PO SCH (09:16)
[2016-11-15] MEDS: Rivaroxaban 10 MG Tab PO SCH (09:16)
[2016-11-15] MEDS: Hydrochlorothiazide 25 MG Tab PO SCH (09:16)
[2016-11-15] MEDS: Metoprolol Succinate 50 MG Tab.ER PO SCH (09:16)
[2016-11-15] MEDS: Furosemide 40 MG Tab PO SCH (09:16)
[2016-11-15] MEDS: Lisinopril 20 MG Tab PO SCH (09:17)
[2016-11-15] MEDS: Indapamide 2.5 MG Tab PO SCH (09:17)
[2016-11-15] MEDS: Morphine 15 MG Tab.ER PO SCH ×2 (09:17→20:29)
[2016-11-15] MEDS: Lutein/Minerals/Vit A,C & E Tab PO SCH (09:17)
[2016-11-15] MEDS: Insulin Detemir 100 Units/ML 3 ML Pen SUBCUT SCH ×2 (09:20→20:32)
[2016-11-15] MEDS: Tamsulosin 0.4 MG Cap.ER PO SCH (20:25)
[2016-11-15] MEDS: Simvastatin 40 MG Tab PO SCH (20:30)
[2016-11-15] MEDS: Gabapentin 300 MG Cap PO SCH (20:31)
[2016-11-16] MEDS: oxyCODONE 5 MG Tab PO PRN ×3 (02:47→23:59)
[2016-11-16] MEDS: Acetaminophen 325 MG Tab PO PRN (06:47)
[2016-11-16] MEDS: Fluticasone Propionate Nasal Spray 16 GM Bottle NASBOTH SCH (08:52)
[2016-11-16] MEDS: Formoterol/Mometasone 200-5 MCG 8.8 GM Inhaler IH SCH ×2 (08:52→17:08)
[2016-11-16] MEDS: Metoprolol Succinate 50 MG Tab.ER PO SCH (08:53)
[2016-11-16] MEDS: Furosemide 40 MG Tab PO SCH (08:53)
[2016-11-16] MEDS: Hydrochlorothiazide 25 MG Tab PO SCH (08:53)
[2016-11-16] MEDS: Allopurinol 300 MG Tab PO SCH (08:53)
[2016-11-16] MEDS: Ferrous Sulfate 325 MG Tab PO SCH (08:53)
[2016-11-16] MEDS: Indapamide 2.5 MG Tab PO SCH (08:53)
[2016-11-16] MEDS: Spironolactone 25 MG Tab PO SCH (08:53)
[2016-11-16] MEDS: Rivaroxaban 10 MG Tab PO SCH (08:54)
[2016-11-16] MEDS: Morphine 15 MG Tab.ER PO SCH ×2 (08:54→20:48)
[2016-11-16] MEDS: Lisinopril 20 MG Tab PO SCH (08:54)
[2016-11-16] MEDS: Lutein/Minerals/Vit A,C & E Tab PO SCH (08:54)
[2016-11-16] MEDS: Insulin Detemir 100 Units/ML 3 ML Pen SUBCUT SCH ×2 (09:01→21:06)
[2016-11-16] MEDS: Insulin Aspart 100 Units/ML 3 ML Pen SUBCUT SCH ×6 (09:02→17:09)
[2016-11-16] MEDS: Gabapentin 300 MG Cap PO SCH (20:47)
[2016-11-16] MEDS: Simvastatin 40 MG Tab PO SCH (20:48)
[2016-11-16] MEDS: Tamsulosin 0.4 MG Cap.ER PO SCH (20:48)
[2016-11-17] MEDS: MELATONIN 10 MG PO PRN ×2 (00:02→20:43)
[2016-11-17] MEDS: Acetaminophen 325 MG Tab PO PRN ×2 (00:07→15:08)
[2016-11-17] MEDS: oxyCODONE 5 MG Tab PO PRN ×3 (06:05→20:41)
[2016-11-17] MEDS: Formoterol/Mometasone 200-5 MCG 8.8 GM Inhaler IH SCH ×2 (06:07→17:31)
[2016-11-17] MEDS: Allopurinol 300 MG Tab PO SCH (08:56)
[2016-11-17] MEDS: Furosemide 40 MG Tab PO SCH (08:56)
[2016-11-17] MEDS: Ferrous Sulfate 325 MG Tab PO SCH (08:56)
[2016-11-17] MEDS: Lutein/Minerals/Vit A,C & E Tab PO SCH (08:56)
[2016-11-17] MEDS: Rivaroxaban 10 MG Tab PO SCH (08:56)
[2016-11-17] MEDS: Lisinopril 20 MG Tab PO SCH (08:57)
[2016-11-17] MEDS: Morphine 15 MG Tab.ER PO SCH ×2 (08:57→20:36)
[2016-11-17] MEDS: Hydrochlorothiazide 25 MG Tab PO SCH (08:57)
[2016-11-17] MEDS: Indapamide 2.5 MG Tab PO SCH (08:57)
[2016-11-17] MEDS: Metoprolol Succinate 50 MG Tab.ER PO SCH (08:57)
[2016-11-17] MEDS: Spironolactone 25 MG Tab PO SCH (08:57)
[2016-11-17] MEDS: Insulin Detemir 100 Units/ML 3 ML Pen SUBCUT SCH ×2 (08:58→21:23)
[2016-11-17] MEDS: Insulin Aspart 100 Units/ML 3 ML Pen SUBCUT SCH ×6 (08:58→17:29)
[2016-11-17] MEDS: Fluticasone Propionate Nasal Spray 16 GM Bottle NASBOTH SCH (08:59)
[2016-11-17] MEDS: Gabapentin 300 MG Cap PO SCH (20:36)
[2016-11-17] MEDS: Simvastatin 40 MG Tab PO SCH (20:36)
[2016-11-17] MEDS: Tamsulosin 0.4 MG Cap.ER PO SCH (20:36)
[2016-11-18] MEDS: oxyCODONE 5 MG Tab PO PRN ×2 (03:54→12:21)
[2016-11-18] MEDS: Acetaminophen 325 MG Tab PO PRN ×3 (04:54→23:41)
[2016-11-18] MEDS: Formoterol/Mometasone 200-5 MCG 8.8 GM Inhaler IH SCH ×2 (06:07→17:30)
[2016-11-18] MEDS: Insulin Aspart 100 Units/ML 3 ML Pen SUBCUT SCH ×6 (08:12→17:29)
[2016-11-18] MEDS: Lutein/Minerals/Vit A,C & E Tab PO SCH (08:55)
[2016-11-18] MEDS: Fluticasone Propionate Nasal Spray 16 GM Bottle NASBOTH SCH (08:55)
[2016-11-18] MEDS: Furosemide 40 MG Tab PO SCH (08:55)
[2016-11-18] MEDS: Spironolactone 25 MG Tab PO SCH (08:55)
[2016-11-18] MEDS: Ferrous Sulfate 325 MG Tab PO SCH (08:56)
[2016-11-18] MEDS: Metoprolol Succinate 50 MG Tab.ER PO SCH (08:56)
[2016-11-18] MEDS: Allopurinol 300 MG Tab PO SCH (08:57)
[2016-11-18] MEDS: Lisinopril 20 MG Tab PO SCH (08:57)
[2016-11-18] MEDS: Indapamide 2.5 MG Tab PO SCH (08:57)
[2016-11-18] MEDS: Rivaroxaban 10 MG Tab PO SCH (08:57)
[2016-11-18] MEDS: Hydrochlorothiazide 25 MG Tab PO SCH (08:58)
[2016-11-18] MEDS: Morphine 15 MG Tab.ER PO SCH ×2 (08:59→20:21)
[2016-11-18] MEDS: Insulin Detemir 100 Units/ML 3 ML Pen SUBCUT SCH ×2 (09:04→21:39)
[2016-11-18] MEDS ORDERED: MELATONIN 5 MG PO PRN (12:10)
[2016-11-18] MEDS: Tamsulosin 0.4 MG Cap.ER PO SCH (20:20)
[2016-11-18] MEDS: Gabapentin 300 MG Cap PO SCH (20:22)
[2016-11-18] MEDS: Simvastatin 40 MG Tab PO SCH (20:22)
[2016-11-19] MEDS: oxyCODONE 5 MG Tab PO PRN ×3 (03:54→22:10)
[2016-11-19] MEDS: Formoterol/Mometasone 200-5 MCG 8.8 GM Inhaler IH SCH ×2 (07:54→18:21)
[2016-11-19] MEDS: Insulin Aspart 100 Units/ML 3 ML Pen SUBCUT SCH ×6 (07:58→18:21)
[2016-11-19] MEDS: Lutein/Minerals/Vit A,C & E Tab PO SCH (09:01)
[2016-11-19] MEDS: Spironolactone 25 MG Tab PO SCH (09:01)
[2016-11-19] MEDS: Lisinopril 20 MG Tab PO SCH (09:01)
[2016-11-19] MEDS: Rivaroxaban 10 MG Tab PO SCH (09:01)
[2016-11-19] MEDS: Furosemide 40 MG Tab PO SCH (09:01)
[2016-11-19] MEDS: Metoprolol Succinate 50 MG Tab.ER PO SCH (09:02)
[2016-11-19] MEDS: Indapamide 2.5 MG Tab PO SCH (09:02)
[2016-11-19] MEDS: Allopurinol 300 MG Tab PO SCH (09:02)
[2016-11-19] MEDS: Morphine 15 MG Tab.ER PO SCH ×2 (09:02→20:29)
[2016-11-19] MEDS: Hydrochlorothiazide 25 MG Tab PO SCH (09:04)
[2016-11-19] MEDS: Ferrous Sulfate 325 MG Tab PO SCH (09:05)
[2016-11-19] MEDS: Fluticasone Propionate Nasal Spray 16 GM Bottle NASBOTH SCH (09:09)
[2016-11-19] MEDS: Insulin Detemir 100 Units/ML 3 ML Pen SUBCUT SCH ×2 (09:10→22:02)
[2016-11-19] MEDS: Acetaminophen 325 MG Tab PO PRN (11:08)
[2016-11-19] MEDS: Gabapentin 300 MG Cap PO SCH (20:26)
[2016-11-19] MEDS: Tamsulosin 0.4 MG Cap.ER PO SCH (20:28)
[2016-11-19] MEDS: Simvastatin 40 MG Tab PO SCH (20:31)
[2016-11-20] MEDS: Acetaminophen 325 MG Tab PO PRN (01:07)
[2016-11-20] MEDS: oxyCODONE 5 MG Tab PO PRN (04:09)
[2016-11-20] MEDS: Formoterol/Mometasone 200-5 MCG 8.8 GM Inhaler IH SCH (06:17)
[2016-11-20 07:16] VITALS: BP 104/58
[2016-11-20] MEDS: Insulin Aspart 100 Units/ML 3 ML Pen SUBCUT SCH ×4 (08:46→12:31)
[2016-11-20] MEDS: Insulin Detemir 100 Units/ML 3 ML Pen SUBCUT SCH (08:48)
[2016-11-20] MEDS: Furosemide 40 MG Tab PO SCH (08:49)
[2016-11-20] MEDS: Morphine 15 MG Tab.ER PO SCH (08:49)
[2016-11-20] MEDS: Allopurinol 300 MG Tab PO SCH (08:50)
[2016-11-20] MEDS: Indapamide 2.5 MG Tab PO SCH (08:50)
[2016-11-20] MEDS: Ferrous Sulfate 325 MG Tab PO SCH (08:50)
[2016-11-20] MEDS: Rivaroxaban 10 MG Tab PO SCH (08:51)
[2016-11-20] MEDS: Metoprolol Succinate 50 MG Tab.ER PO SCH (08:51)
[2016-11-20] MEDS: Lisinopril 20 MG Tab PO SCH (08:51)
[2016-11-20] MEDS: Lutein/Minerals/Vit A,C & E Tab PO SCH (08:52)
[2016-11-20] MEDS: Spironolactone 25 MG Tab PO SCH (08:52)
[2016-11-20] MEDS: Hydrochlorothiazide 25 MG Tab PO SCH (08:52)
--- NOTE | 2016-11-20 11:39 | PN ---
DATE: 11/20/2016 SUBJECTIVE: The patient is doing well. He is ready for discharge. The patient denies any chest pain, shortness of breath, fever, chills, nor any other complaints. There are no concerns noted from the nursing staff. OBJECTIVE: Vital Signs: Blood pressure is 104/58, pulse of 82, respiration 20, and temperature of 98.7. Heart: Regular rate and rhythm. Normal S1 and S2. No gallops. No rubs. Lungs: Equal bilaterally. No crackles. No wheezing. Abdomen: Soft and nontender. Extremities: Negative for any pedal edema. No calf tenderness. PLAN: We will discharge the patient home today. CONDITION ON DISCHARGE: Improved. [facility] /[id number]
[2016-11-20] MEDS: Fluticasone Propionate Nasal Spray 16 GM Bottle NASBOTH SCH (12:25)
--- NOTE | 2016-11-21 07:00 | DISCH ---
FINAL DIAGNOSES: 1. Status post left knee replacement. 2. Type 2 diabetes mellitus. 3. Coronary artery disease. 4. Chronic obstructive pulmonary disease .. BRIEF HISTORY OF PRESENT ILLNESS: Please see H and P. HOSPITAL COURSE: The patient was admitted to swing bed after left knee surgery and PT and OT was consulted to see the patient and hospital course was complicated by some wheezing and anemia, which he was treated with bronchodilators and also was given a blood transfusion. The patient's hospital course was otherwise uncomplicated, and the patient was discharged on 11/20/2016. CBC on 11/15/2016; hemoglobin was 10, hematocrit was 32, and when compared to 11/08/2016, which is 7.9 and 25 respectively. CONDITION ON DISCHARGE: Improved. DISCHARGE INSTRUCTIONS: See discharge sheet, and we will resume his home medication, and follow up with me in about 2 weeks for recheck. [facility] /[id number]
== END 2016-11-20 13:45 | disposition home or self-care (01) | DRG 560 ==
LOC: DL.MS 15:58 → UNDOADMIN 15:58 → DL.MS 17:25
PROVIDERS: ADMIT Internal Medicine; ATTEND Internal Medicine
PROC: 30233N1 Transfusion of Nonautologous Red Blood Cells into Peripheral Vein, Percutaneous Approach (ICD-10-PCS; principal; 2016-11-08)
DX: Z47.1 Aftercare following joint replacement surgery (principal); D62 Acute posthemorrhagic anemia; R06.2 Wheezing; R33.9 Retention of urine, unspecified; R41.0 Disorientation, unspecified; I25.10 Atherosclerotic heart disease of native coronary artery without angina pectoris; J44.9 Chronic obstructive pulmonary disease, unspecified; I12.9 Hypertensive chronic kidney disease with stage 1 through stage 4 chronic kidney disease, or unspecified chronic kidney disease; E11.22 Type 2 diabetes mellitus with diabetic chronic kidney disease; N18.9 Chronic kidney disease, unspecified; Z96.652 Presence of left artificial knee joint; Z88.8 Allergy status to other drugs, medicaments and biological substances; Z79.4 Long term (current) use of insulin; Z79.899 Other long term (current) drug therapy; Z87.891 Personal history of nicotine dependence
CPT/HCPCS: 36415; 36430; 80048; 80076; 81001; 82607; 82728; 82746; 82962; 83540; 83615; 85025; 85027; 86850; 86900; 86901; 86920; 86922; 87086; 97110-GO; 97110-GP; 97116-GP; 97162-GP; 97165-GO; 97530-GO; 97530-GP; 97535-GO; A9270-GY; J1815-GY; P9016

== ENCOUNTER 2017-07-23 06:46 | Day surgery (SDC) | payer MEDICARE, BC ==
[~2017-07-23 06:46] MED LIST: Dextrose 5%-0.45% NaCl 1,000 ML IV SCH; Midazolam 1 MG/ML 2 ML SDV ONE; Sodium Chloride 0.9% 10 ML Syringe FLUSH PRN; fentaNYL 100 MCG/2 ML SDV ONE
[2017-07-23] MEDS ORDERED: Midazolam 1 MG/ML 2 ML SDV IV ONE ×3 (06:47→07:43)
[2017-07-23] MEDS ORDERED: fentaNYL 100 MCG/2 ML SDV IV ONE ×3 (06:47→07:42)
[2017-07-23] MEDS ORDERED: Sodium Chloride 0.9% 10 ML Syringe FLUSH PRN (06:56)
[2017-07-23] MEDS ORDERED: Dextrose 5%-0.45% NaCl 1,000 ML IV SCH (07:00)
[2017-07-23 11:31] VITALS: BP 159/64
--- NOTE | 2017-07-23 13:45 | OR ---
DATE: 07/23/2017 PROCEDURES: Esophagogastroduodenoscopy, NBI, multiple pinch biopsies, and multiple brush biopsies. INSTRUMENT USED: GIF-Q180 Olympus video panendoscope. PREMEDICATIONS: No oral topical anesthesia used. Fentanyl 100 mcg intravenous, Versed 1.5 mg intravenous. Nasal O2 cannula. The procedure was done under pulse oximetry, BP recording, and monitor car operator. INDICATION: The patient with progressive dysphagia and related chest pain, unexplained and not responsive to medical measures, diabetic with leukopenia. Esophagogastroduodenoscopy is performed for detection of any active erosive lesions, Tomlinson esophagus and/or malignancy also under consideration, H. pylori status to be determined, endoscopic hemostasis therapy if needed. Esophageal dilatations if indicated. DESCRIPTION OF PROCEDURE: The scope was passed with ease. Adequate visualization of the esophagus was made from proximal to distal areas. No upper esophageal lesions identified. No distal esophageal stricture. No uphill or downhill esophageal varices. No Anastasia-Cohen tear. Whitish exudate was noted in the entire visualized esophagus. Features macroscopically consistent with esophageal moniliasis. Prominent friable folds were noted at the gastroesophageal junction, NBI views were obtained, photographs were taken of the distal esophagus. No proximal gastric varices noted. Gastric fundus examination by retroflexion showed no polypoid lesions. No gastric ulcer, malignant mass, or vascular ectasia identified. Duodenal bulb showed no ulcer. Visualized second part of the duodenum was unremarkable. Multiple pinch biopsies were taken from the gastric antrum and proximal body and sent for PyloriTek test for H. pylori and histopathology. Multiple pinch biopsies as well as brush biopsy were taken from the area prominent folds at the gastroesophageal junction. Multiple pinch biopsies as well as brush biopsy for fungal smear and culture taken from mid esophagus. No bleeding was noted from any of the visualized areas at the completion of examination. Photographs were taken of the duodenal bulb, gastric antrum, fundus, distal as well as mid esophagus. IMPRESSION: Esophageal moniliasis. The patient tolerated the procedure well. [facility] /[id number]
--- NOTE | 2017-07-23 13:54 | LETTER ---
07/23/2017 Munir Maher MD [facility] [address] [place] [id number] RE: ANTOINE CROWE : [address] Maher: Mr. Antoine Crowe had esophagogastroduodenoscopy done this morning and he tolerated the procedure well. I herewith send a copy of the endoscopy note and photographs for your review. Thank you. Sincerely, [facility] /[id number]
--- NOTE | 2017-07-23 13:57 | LETTER ---
07/23/2017 Terell Castaneda MD [facility] [address] [place] [address] RE: ANTOINE KNAPP : [address] Castaneda: Mr. Antoine Knapp had esophagogastroduodenoscopy done this morning and he tolerated the procedure well. I herewith send a copy of the endoscopy note and photographs for your review. Thank you, Sincerely, [facility] /[id number]
== END 2017-07-23 10:19 | disposition home or self-care (01) ==
LOC: DL.ENDO 06:46
PROVIDERS: ATTEND Internal Medicine Gastroenterology
DX: K29.50 Unspecified chronic gastritis without bleeding (principal); K20.9 Esophagitis, unspecified; J45.909 Unspecified asthma, uncomplicated; I25.10 Atherosclerotic heart disease of native coronary artery without angina pectoris; J44.9 Chronic obstructive pulmonary disease, unspecified; E66.9 Obesity, unspecified; E11.9 Type 2 diabetes mellitus without complications; I10 Essential (primary) hypertension; Z88.8 Allergy status to other drugs, medicaments and biological substances; Z91.09 Other allergy status, other than to drugs and biological substances; J30.2 Other seasonal allergic rhinitis
CPT/HCPCS: 87077; 87102; 87205; J1642; J2250; J3010; J7042; J7050

== ENCOUNTER 2017-09-27 20:49 | Inpatient (IN) | payer MEDICARE, BC ==
[2017-09-27 21:48] LABS: CHLORIDE,CL 98 mmol/L (101-111); SODIUM,NA 133 mmol/L (135-145)
[2017-09-27] MEDS ORDERED: Sodium Chloride 0.9% 1,000 ML IV ONE (22:26)
--- NOTE | 2017-09-27 22:27 | EDM.PDOC ---
ED HPI GENERAL MEDICAL PROBLEM - General Chief Complaint: Respiratory Problem Stated Complaint: SOB [id number] Time Seen by Provider: 09/27/17 21:28 Source of Information: Reports: Patient History Limitations: Reports: No Limitations - History of Present Illness INITIAL COMMENTS - FREE TEXT/NARRATIVE: C?O SOB tonight after walking up flight of stairs, tried lying down for a bit but did not help. Hx leukemia. Scheduled for transfusion on Wednesday with low hemoglobin. Ocassional cough, no chest pain. Hx multiple transfusions since knee surgery. Diagnosed with Leukemia in February. - Related Data Allergies Allergy/AdvReac Type Severity Reaction Status Date / Time cefuroxime [From Ceftin] Allergy Mild Nausea and Verified 09/27/17 21:01 Vomiting metformin Allergy Diarrhea Verified 09/27/17 21:01 spironolactone AdvReac Diarrhea Verified 09/27/17 21:01 antifungal cream Allergy Hives Uncoded 09/27/17 21:01 dust mite extract Allergy Shortness Uncoded 09/27/17 21:01 of Breath seasonal Allergy Shortness Uncoded 09/27/17 21:01 of Breath Home Meds: Home Meds Allopurinol 300 mg PO DAILY 02/12/15 [History] Furosemide 40 mg PO DAILY 02/12/15 [History] Indapamide 2.5 mg PO DAILY 02/12/15 [History] Lisinopril/Hydrochlorothiazide [Lisinopril-Hctz 20-12.5 mg Tab] 1 tab PO DAILY 02/12/15 [History] Metoprolol Succinate [Toprol XL] 50 mg PO DAILY 02/12/15 [History] Simvastatin 40 mg PO BEDTIME 02/12/15 [History] Tamsulosin HCl 0.4 mg PO BEDTIME 02/12/15 [History] Fluticasone Propionate [Flovent HFA 110 MCG] 1 - 2 puff INH BID PRN 08/03/16 [ History] Ascorbic Acid [Vitamin C] 100 mg PO DAILY 11/06/16 [History] Calcium Carb & Citrate/Vit D3 [Calcium + D3 ER Tablet] 1 tab PO DAILY 11/06/16 [ History] Ferrous Sulfate [Iron] 1 tab PO DAILY 11/06/16 [History] Gabapentin [Neurontin] 300 mg PO BEDTIME 11/06/16 [History] Lutein/Minerals/Vit A,C & E [Ocuvite] 1 tab PO DAILY 11/06/16 [History] Nitroglycerin [Nitrostat] 0.4 mg SL .Q5MIN 11/06/16 [History] Sennosides [Senna] 1 tab PO DAILY 11/06/16 [History] Melatonin 5 mg PO BEDTIME PRN 11/09/16 [History] Ondansetron HCl [Zofran] 8 mg PO Q8H 05/06/17 [History] Prochlorperazine Maleate [Compazine] 10 mg PO Q6H 05/06/17 [History] Insulin Lispro [Humalog Kwikpen U-100] 10 units SQ TID 06/11/17 [History] Albuterol [Ventolin HFA] 2 puff INH ASDIRECTED PRN 07/23/17 [History] Insulin Glarg,Human.Rec.Analog [Lantus] 25 units SQ BID 07/23/17 [History] Past Medical History HEENT History: Reports: Glaucoma, Hard of Hearing, Impaired Vision, Other (See Below) Other HEENT History: WEARS CORRECTIVE LENS Cardiovascular History: Reports: Afib, Hypertension, Stents Respiratory History: Reports: Asthma, COPD, Sleep Apnea, Other (See Below) Other Respiratory History: LUNG NODULE Gastrointestinal History: Reports: Chronic Constipation, Hiatal Hernia Genitourinary History: Reports: BPH, Diabetic Nephropathy Musculoskeletal History: Reports: Arthritis, Back Pain, Chronic, Fracture, Gout , Osteoarthritis Neurological History: Reports: None Psychiatric History: Reports: None Endocrine/Metabolic History: Reports: Diabetes, Type II, Obesity/BMI 30+ Hematologic History: Reports: Anemia, Blood Transfusion(s), Other (See Below) Other Hematologic History: MYELODYSPLASTIC SYNDROME, PANCYTOPENIA Immunologic History: Reports: Immunosuppression Oncologic (Cancer) History: Reports: Leukemia Dermatologic History: Reports: Urticaria - Infectious Disease History Infectious Disease History: Reports: Other (See Below) Other Infectious Disease History: uncertain - Past Surgical History Head Surgeries/Procedures: Reports: None HEENT Surgical History: Reports: Cataract Surgery Cardiovascular Surgical History: Reports: Coronary Artery Stent Respiratory Surgical History: Reports: Lung Biopsies GI Surgical History: Reports: Colonoscopy Male Surgical History: Reports: TURP-Transurethral Resection of Prostate Endocrine Surgical History: Reports: None Neurological Surgical History: Reports: None, Scoliosis Musculoskeletal Surgical History: Reports: Knee Replacement, Other (See Below) Other Musculoskeletal Surgeries/Procedures:: BACK SURG. LEFT KNEE REPLACEMENT Oncologic Surgical History: Reports: None Dermatological Surgical History: Reports: None Social & Family History - Family History Family Medical History: Noncontributory - Tobacco Use Smoking Status *Q: Unknown Ever Smoked Years of Tobacco use: 35 Packs/Tins Daily: 2 Used Tobacco, but Quit: Yes Month/Year Tobacco Last Used: 1992 Second Hand Smoke Exposure: No - Caffeine Use Caffeine Use: Reports: Coffee Other Caffeine Use: 1 cup daily - Alcohol Use Days Per Week of Alcohol Use: 2 Number of Drinks Per Day: 2 Total Drinks Per Week: 4 Date of Last Drink: 09/27/17 Time of Last Drink: 12:00 - Recreational Drug Use Recreational Drug Use: No Drug Use in Last 12 Months: No ED ROS GENERAL - Review of Systems Review Of Systems: See Below Constitutional: Denies: Fever, Chills HEENT: Reports: No Symptoms Respiratory: Reports: Shortness of Breath, Cough (occasional). Denies: Wheezing Cardiovascular: Reports: Dyspnea on Exertion, Lightheadedness. Denies: Chest Pain GI/Abdominal: Reports: No Symptoms : Reports: No Symptoms Musculoskeletal: Reports: No Symptoms Skin: Reports: No Symptoms Neurological: Reports: No Symptoms ED EXAM, GENERAL - Physical Exam Exam: See Below Exam Limited By: No Limitations General Appearance: Alert, No Apparent Distress Eye Exam: Bilateral Eye: EOMI Ears: Normal External Exam, Normal TMs Nose: Normal Inspection Throat/Mouth: Normal Inspection Head: Atraumatic, Normocephalic Neck: Normal Inspection Respiratory/Chest: No Respiratory Distress, Lungs Clear, Decreased Breath Sounds (decreased right) Cardiovascular: Normal Peripheral Pulses, Regular Rate, Rhythm, No Edema, Other (orthostatic drop) GI/Abdominal: Normal Bowel Sounds, Soft Extremities: Normal Inspection. No: Pedal Edema Neurological: Alert, Oriented, Normal Cognition Psychiatric: Normal Affect Skin Exam: Warm, Dry, Intact, Pallor Course - Vital Signs Last Recorded V/S: Last Vital Signs Temp 98.5 F 09/27/17 22:06 Pulse 59 L 09/27/17 22:06 Resp 18 09/27/17 22:06 BP 115/49 L 09/27/17 22:06 Pulse Ox 96 09/27/17 22:06 Orthostatic Blood Pressure [ 77/37 Standing] Orthostatic Blood Pressure [ 67/49 Sitting] Orthostatic Blood Pressure [ 115/49 Supine] - Orders/Labs/Meds Orders: Active Orders 24 hr Category Date Time Status EKG 12 Lead [EKG Documentation Completion] [RC] URGENT Care 09/27/17 20:52 Active Chest 1V Frontal [CR] Urgent Exams 09/27/17 20:52 Taken PACKED CELLS [RED BLOOD CELLS LP] [BBK] Stat Lab 09/27/17 22:48 Ordered TYPE AND SCREEN [BBK] Stat Lab 09/27/17 22:48 Ordered Sodium Chloride 0.9% [Normal Saline] 1,000 ml Med 09/27/17 22:26 Active IV .BOLUS Transfuse Red Blood Cells [COMM] Urgent Oth 09/27/17 22:48 Ordered Medication Orders Sodium Chloride (Normal Saline) 1,000 mls @ 500 mls/hr IV .BOLUS ONE Stop: 09/28/17 00:25 Labs: Laboratory Tests 09/27/17 09/27/17 Range/Units 21:23 21:23 WBC 5.1 (5.0-10.0) 10^3/uL RBC 2.56 L (4.6-6.2) 10^6/uL Hgb 7.0 L D (14.0-18.0) g/dL Hct 23.6 L (40.0-54.0) % MCV 92.2 D (80-100) fL MCH 27.3 (27.0-34.0) pg MCHC 29.7 L (33.0-35.0) g/dL Plt Count 57 L D (150-450) 10^3/uL Neut % (Auto) 75.1 (42.2-75.2) % Lymph % (Auto) 21.0 (20.5-50.1) % [place] % (Auto) 2.1 (2-8) % Eos % (Auto) 0.4 L (1.0-3.0) % Baso % (Auto) 1.4 H (0.0-1.0) % Add Manual Diff Yes Neutrophils % (Manual) 70 (42-75) % Lymphocytes % (Manual) 29 (20-50) % Monocytes % (Manual) 1 L (2-8) % Hypochromasia 1+ slight Anisocytosis 1+ slight Sodium 133 L (135-145) mmol/L Potassium 3.7 (3.6-5.0) mmol/L Chloride 98 L (101-111) mmol/L Carbon Dioxide 25.0 (21.0-31.0) mmol/L Anion Gap 13.7 BUN 43 H (7-18) mg/dL Creatinine 1.8 H (0.6-1.3) mg/dL Est Cr Clr Drug Dosing 34.92 mL/min Estimated GFR (MDRD) 37 BUN/Creatinine Ratio 23.88 Glucose 141 H (74-105) mg/dL Calcium 8.2 L (8.4-10.2) mg/dl Total Bilirubin 0.8 (0.2-1.0) mg/dL AST 16 (10-42) IU/L ALT 10 (10-60) IU/L Alkaline Phosphatase 47 (42-121) IU/L Troponin I < 0.02 (0.00-0.02) ng/ml B-Natriuretic Peptide 59 (0-100) pg/ml Total Protein 7.0 (6.7-8.2) g/dl Albumin 3.7 (3.2-5.5) g/dl Globulin 3.3 Albumin/Globulin Ratio 1.12 Meds: Medications Generic Name Dose Route Start Last Admin Trade Name Freq PRN Reason Stop Dose Admin Sodium Chloride 1,000 mls @ 500 mls/hr 09/27/17 22:26 Normal Saline IV 09/28/17 00:25 .BOLUS ONE - Radiology Interpretation Free Text/Narrative:: CXR Atelectasis right lower lobe Departure - Departure Time of Disposition: 22:56 Disposition: Admitted As Inpatient 65 Condition: Good Clinical Impression: Anemia, Leukemia, Orthostatic hypotension, Dyspnea - Discharge Information Forms: ED Department Discharge - My Orders Last 24 Hours: My Active Orders 09/27/17 20:52 EKG 12 Lead [EKG Documentation Completion] [RC] URGENT Chest 1V Frontal [CR] Urgent 09/27/17 22:26 Sodium Chloride 0.9% [Normal Saline] 1,000 ml IV .BOLUS 09/27/17 22:48 PACKED CELLS [RED BLOOD CELLS LP] [BBK] Stat TYPE AND SCREEN [BBK] Stat Transfuse Red Blood Cells [COMM] Urgent - Assessment/Plan Last 24 Hours: My Active Orders 09/27/17 20:52 EKG 12 Lead [EKG Documentation Completion] [RC] URGENT Chest 1V Frontal [CR] Urgent 09/27/17 22:26 Sodium Chloride 0.9% [Normal Saline] 1,000 ml IV .BOLUS 09/27/17 22:48 PACKED CELLS [RED BLOOD CELLS LP] [BBK] Stat TYPE AND SCREEN [BBK] Stat Transfuse Red Blood Cells [COMM] Urgent
[2017-09-27] MEDS ORDERED: Ondansetron 4 MG Tab.DIS PO PRN (23:54)
[2017-09-27] MEDS ORDERED: Albuterol/Ipratropium 3.0-0.5 MG/3 ML Neb Soln NEB PRN (23:54)
[2017-09-28] MEDS ORDERED: MELATONIN 5 MG PO PRN (00:07)
[2017-09-28] MEDS ORDERED: FLUTICASONE PROPIONATE INH PRN (00:07)
[2017-09-28] MEDS ORDERED: Albuterol 6.7 GM Inhaler INH PRN (00:07)
[2017-09-28] MEDS ORDERED: 50% Dextrose in Water 50 ML Syringe IVPUSH PRN (00:09)
[2017-09-28] MEDS: Piperacillin/Tazobactam 3.375 GM in Sodium Chloride 0.9% 100 ML IV SCH ×4 (01:17→17:22)
--- NOTE | 2017-09-28 04:47 | HP ---
DATE OF SERVICE: 09/27/2017 CHIEF COMPLAINT: Increasing weakness and tiredness. HISTORY OF PRESENTING ILLNESS: Mr. Sebastien Garner is a 77-year-old male with medical history significant for hypertension, hyperlipidemia, type 2 diabetes mellitus, chronic obstructive pulmonary disease, history of myelodysplastic syndrome, receiving chemotherapy; chronic history of anemia requiring multiple blood transfusions in the past, coronary artery disease, status post stents placed, and atrial fibrillation, who presents to the ER with complaints of increasing weakness and tiredness and while in the emergency room, the patient was noted to have orthostatic hypotension. He was also noted to have severe anemia with hemoglobin dropping down to 7. Initial arrangements were made for him to be transferred to [facility] for receiving blood transfusion as he has antibodies present, and we could not get blood transfused till Wednesday, but unfortunately [facility] is out of beds, so we had to admit him here for further evaluation and treatment. The patient claims that he has been sick for the last 1 to 2 days which has been progressively getting worse. He grades the weakness as 8/10 in intensity, which gets aggravated on ambulation, relieved with rest, not associated with nausea or vomiting. Denies any chest pains. No shortness of breath. No abdominal pain. No diarrhea. Complains of having intermittent episodes of cough with sputum which is whitish in color. Denied any fever, but noted to have chills. No sick contacts. The patient denied any history of chest pains on exertion. No history of dyspnea on exertion. No history of orthopnea or paroxysmal nocturnal dyspnea. The patient denied any history of hematemesis, hematochezia, or melenic stools. Normal bowel and bladder habits otherwise. REVIEW OF SYSTEMS: A complete review of system including skin, ear, nose, and throat; cardiovascular system, respiratory system, gastrointestinal system, genitourinary system, hematology, oncology, neurology, allergy, immunology, and constitutional were all evaluated and were negative except for the above-said notes. PAST MEDICAL HISTORY: Significant for: 1. Hypertension. 2. Hyperlipidemia. 3. Type 2 diabetes mellitus. 4. Coronary artery disease, status post stents placed in the past. 5. Chronic obstructive pulmonary disease. 6. Myelodysplastic syndrome on chemotherapy. 7. Atrial fibrillation. 8. History of asthma. 9. Obesity. PAST SURGICAL HISTORY: Significant for: 1. Transurethral resection of the prostate. 2. Tonsillectomy and adenoidectomy. 3. Spinal surgery. 4. Nasal surgery. 5. Eye surgery. 6. Cataract removal. 7. Skin biopsy. FAMILY HISTORY: Significant for diabetes in his father. Diabetes in his paternal grandmother. SOCIAL HISTORY: He had history of smoking in the past, but quit smoking in 1971. History of occasional alcohol intake. ALLERGIES: The patient noted to have allergies to seasonal allergies, dust mite, Ceftin, metformin, and Spironazide. HOME MEDICATIONS: Include: 1. Simvastatin 40 mg at bedtime. 2. Senokot one tablet daily. 3. Tamsulosin 0.4 mg at bedtime. 4. Neurontin 300 mg at bedtime. 5. Lasix 40 mg daily. 6. Lantus 25 units subcu b.i.d. 7. Indapamide 2.5 mg daily. 8. Lisinopril with hydrochlorothiazide half a tab daily. 9. Metoprolol-XL 50 mg daily. 10.Albuterol 2 puffs inhalation as needed. 11.Vitamin C 100 mg daily. 12.Nitrostat 0.4 mg sublingual every 5 minutes as needed. 13.Humalog 10 units subcutaneous three times a day. PHYSICAL EXAMINATION: Vital Signs: Temperature of 98.5, pulse of 59, blood pressure 115/49. The patient was noted to be orthostatic positive with blood pressure dropping down to 67/49 on standing up, respiratory rate of 18, saturating 96%. General Appearance: The patient is well oriented to time, place, and person. Follows commands spontaneously. Cardiovascular System: S1, S2 heard with normal intensity. No gallops. Respiratory System: Clear to auscultation bilaterally. No wheeze. No crepitations. Abdomen: Soft. Bowel sounds positive. Nontender. No rigidity. No guarding. No rebound tenderness. Extremities: No edema in bilateral lower extremities. Neurologic: No gross focal neurological deficits. LABORATORY DATA: 1. WBC 5.1, hemoglobin 7, hematocrit 23.6, platelet count 57. 2. Sodium 133, potassium 3.7, chloride 98, bicarb 25, BUN of 43, creatinine 1.8, glucose 141. 3. AST 16, ALT 10. 4. BNP 59. Troponin less than 0.02. ASSESSMENT: 1. Generalized weakness. 2. Anemia and thrombocytopenia. 3. Hyponatremia. 4. Hvgak-[id number] renal failure. 5. Possible dehydration. 6. Hypertension, now with hypotensive episode. 7. Type 2 diabetes mellitus. 8. Hyperlipidemia. 9. Myelodysplastic syndrome. 10.Chronic obstructive pulmonary disease. 11.Atrial fibrillation. PLAN: 1. Generalized weakness. The patient presents with generalized weakness. He is noted to have hypotensive episodes. We will hold his antihypertensive medication. We will keep him hydrated with IV fluids, and we will closely follow. 2. Dbfck-tb-[id number] renal failure. The patient's creatinine is up to 1.8 and BUN elevated up to 43, possible prerenal picture. We will keep him hydrated with IV fluids. We will recheck a basic metabolic panel in the a.m. Avoid nephrotoxic agents. Dose adjust medications for renal function. Hold his lisinopril for now and resume his lisinopril once he is more stable. 3. Possible pneumonia. This is unclear at this time. The patient is complaining of cough with sputum which is whitish in color and has possible infiltrate versus atelectasis mostly on the right lower lobe. Given the benefit of the doubt, we will obtain blood cultures, and start him on IV Zosyn for now given his history of cancer. 4. Anemia and thrombocytopenia. This is mainly from his myelodysplastic syndrome. Unfortunately, we could not transfer him to [facility] for receiving blood transfusion. As their hospital is full, we had to admit him here. We will recheck a hemoglobin in a.m. We will request for blood products, but it looks like it will be Wednesday till we get those blood products here. We will avoid any heparin products secondary to the thrombocytopenia. 5. Type 2 diabetes mellitus. The patient is currently on insulin regimen. Continue same. Check his fingersticks with each meals. Have him on supplemental scale insulin as needed for additional coverage of his blood glucose. Have him on hypoglycemic protocol. 6. Chronic obstructive pulmonary disease. Continue with current inhalation treatments. The patient does not have any wheeze noted on the lung exam. Discussed with Amanda Adkins in the ER regarding the plan of care. Reviewed the labs and medications. Reviewed the old charts. [facility] /[id number]
[2017-09-28] MEDS: Heparin Sodium 5,000 Units/ML Vial SUBCUT SCH ×2 (05:50→14:14)
[2017-09-28] MEDS: Insulin Aspart 100 Units/ML 3 ML Pen SUBCUT SCH ×9 (08:19→21:35)
[2017-09-28] MEDS: Ferrous Sulfate 325 MG Tab PO SCH (08:20)
[2017-09-28] MEDS: Calcium Carbonate/Vitamin D3 1250 MG-200 Unit Tab PO SCH (08:21)
[2017-09-28] MEDS: Insulin Detemir 100 Units/ML 3 ML Pen SUBCUT SCH ×2 (08:21→21:38)
[2017-09-28] MEDS: Allopurinol 300 MG Tab PO SCH (08:21)
[2017-09-28] MEDS: Lutein/Minerals/Vit A,C & E Tab PO SCH (08:21)
--- NOTE | 2017-09-28 09:11 | PCM.PN ---
- General Info Date of Service: 09/28/17 Subjective Update: Patient is 77 y/o male with PMH significant for MDS, who presented with increasing weakness and fatigue. He was found to have anemia hb 7.0 and was subsequently admitted. He is pending transfusion tomorrow. He has developed antibodies and due to previous transfusions. His blood unit will be available tomorrow. His hb dropped to 6.5 this morning but he has o dizziness, chest pain. His fatigue and weakness has improved since admission. He denies any new complaints this morning. No bleed. Functional Status: Reports: Pain Controlled - Review of Systems General: Reports: No Symptoms HEENT: Reports: No Symptoms Pulmonary: Reports: No Symptoms Cardiovascular: Reports: No Symptoms Gastrointestinal: Reports: No Symptoms Genitourinary: Reports: No Symptoms Musculoskeletal: Reports: No Symptoms Skin: Reports: No Symptoms Neurological: Reports: No Symptoms Psychiatric: Reports: No Symptoms - Patient Data Vitals - Most Recent: Last Vital Signs Temp 98.1 F 09/28/17 07:00 Pulse 55 L 09/28/17 07:00 Resp 20 09/28/17 07:00 BP 94/45 L 09/28/17 07:00 Pulse Ox 98 09/28/17 07:00 Orthostatic Blood Pressure [ 77/37 Standing] Orthostatic Blood Pressure [ 67/49 Sitting] Orthostatic Blood Pressure [ 115/49 Supine] Weight - Most Recent: 190 lb 6 oz I&O - Last 24 Hours: Intake & Output 09/27/17 09/28/17 09/28/17 22:59 06:59 14:59 Intake Total 340 Balance 340 Lab Results Last 24 Hours: Laboratory Results - last 24 hr 09/27/17 09/27/17 09/28/17 Range/Units 21:23 21:23 06:03 WBC 5.1 3.8 L (5.0-10.0) 10^3/uL RBC 2.56 L 2.38 L (4.6-6.2) 10^6/uL Hgb 7.0 L D 6.5 L* (14.0-18.0) g/dL Hct 23.6 L 22.4 L (40.0-54.0) % MCV 92.2 D 94.1 (80-100) fL MCH 27.3 27.3 (27.0-34.0) pg MCHC 29.7 L 29.0 L (33.0-35.0) g/dL Plt Count 57 L D 50 L (150-450) 10^3/uL Neut % (Auto) 75.1 62.1 (42.2-75.2) % Lymph % (Auto) 21.0 31.6 (20.5-50.1) % [place] % (Auto) 2.1 2.1 (2-8) % Eos % (Auto) 0.4 L 0.3 L (1.0-3.0) % Baso % (Auto) 1.4 H 3.9 H (0.0-1.0) % Add Manual Diff Yes Neutrophils % (Manual) 70 (42-75) % Lymphocytes % (Manual) 29 (20-50) % Monocytes % (Manual) 1 L (2-8) % Hypochromasia 1+ slight Anisocytosis 1+ slight Sodium 133 L (135-145) mmol/L Potassium 3.7 (3.6-5.0) mmol/L Chloride 98 L (101-111) mmol/L Carbon Dioxide 25.0 (21.0-31.0) mmol/L Anion Gap 13.7 BUN 43 H (7-18) mg/dL Creatinine 1.8 H (0.6-1.3) mg/dL Est Cr Clr Drug Dosing 34.92 mL/min Estimated GFR (MDRD) 37 BUN/Creatinine Ratio 23.88 Glucose 141 H (74-105) mg/dL POC Glucose (83-110) mg/dl Calcium 8.2 L (8.4-10.2) mg/dl Phosphorus (2.5-4.6) mg/dL Magnesium (1.8-2.5) mg/dL Total Bilirubin 0.8 (0.2-1.0) mg/dL AST 16 (10-42) IU/L ALT 10 (10-60) IU/L Alkaline Phosphatase 47 (42-121) IU/L Troponin I < 0.02 (0.00-0.02) ng/ml B-Natriuretic Peptide 59 (0-100) pg/ml Total Protein 7.0 (6.7-8.2) g/dl Albumin 3.7 (3.2-5.5) g/dl Globulin 3.3 Albumin/Globulin Ratio 1.12 Urine Color (YELLOW) Urine Appearance (CLEAR) Urine pH (5.0-9.0) Ur Specific [place] (1.005-1.030) Urine Protein (NEGATIVE) Urine Glucose (UA) (NEGATIVE) Urine Ketones (NEGATIVE) Urine Occult Blood (NEGATIVE) Urine Nitrite (NEGATIVE) Urine Bilirubin (NEGATIVE) Urine Urobilinogen (0.2-1.0) mg/dL Ur Leukocyte Esterase (NEGATIVE) Urine RBC /HPF Urine WBC (0-5/HPF) /HPF Ur Epithelial Cells /HPF Urine Bacteria (0-FEW/HPF) /HPF 09/28/17 09/28/17 09/28/17 Range/Units 06:03 07:37 07:40 WBC (5.0-10.0) 10^3/uL RBC (4.6-6.2) 10^6/uL Hgb (14.0-18.0) g/dL Hct (40.0-54.0) % MCV (80-100) fL MCH (27.0-34.0) pg MCHC (33.0-35.0) g/dL Plt Count (150-450) 10^3/uL Neut % (Auto) (42.2-75.2) % Lymph % (Auto) (20.5-50.1) % [place] % (Auto) (2-8) % Eos % (Auto) (1.0-3.0) % Baso % (Auto) (0.0-1.0) % Add Manual Diff Neutrophils % (Manual) (42-75) % Lymphocytes % (Manual) (20-50) % Monocytes % (Manual) (2-8) % Hypochromasia Anisocytosis Sodium 139 (135-145) mmol/L Potassium 4.0 (3.6-5.0) mmol/L Chloride 103 (101-111) mmol/L Carbon Dioxide 28.0 (21.0-31.0) mmol/L Anion Gap 12.0 BUN 42 H (7-18) mg/dL Creatinine 1.6 H (0.6-1.3) mg/dL Est Cr Clr Drug Dosing 39.29 mL/min Estimated GFR (MDRD) 42 BUN/Creatinine Ratio Glucose 125 H (74-105) mg/dL POC Glucose 124 H (83-110) mg/dl Calcium 8.3 L (8.4-10.2) mg/dl Phosphorus 4.1 (2.5-4.6) mg/dL Magnesium 2.2 (1.8-2.5) mg/dL Total Bilirubin (0.2-1.0) mg/dL AST (10-42) IU/L ALT (10-60) IU/L Alkaline Phosphatase (42-121) IU/L Troponin I (0.00-0.02) ng/ml B-Natriuretic Peptide (0-100) pg/ml Total Protein (6.7-8.2) g/dl Albumin (3.2-5.5) g/dl Globulin Albumin/Globulin Ratio Urine Color Yellow (YELLOW) Urine Appearance Clear (CLEAR) Urine pH 5.5 (5.0-9.0) Ur Specific [place] 1.010 (1.005-1.030) Urine Protein Negative (NEGATIVE) Urine Glucose (UA) Negative (NEGATIVE) Urine Ketones Negative (NEGATIVE) Urine Occult Blood Negative (NEGATIVE) Urine Nitrite Negative (NEGATIVE) Urine Bilirubin Negative (NEGATIVE) Urine Urobilinogen 0.2 (0.2-1.0) mg/dL Ur Leukocyte Esterase Trace H (NEGATIVE) Urine RBC Not seen /HPF Urine WBC 5-10 H (0-5/HPF) /HPF Ur Epithelial Cells Rare /HPF Urine Bacteria Rare (0-FEW/HPF) /HPF [place] Results Last 24 Hours: Microbiology 09/28/17 00:18 Anaerobic Blood Culture - Final Blood - Venous - Lab Draw Med Orders - Current: Current Medications Albuterol (Proventil Hfa) gm INH ASDIRECTED PRN PRN Reason: Shortness of Breath Albuterol/Ipratropium (Duoneb 3.0-0.5 Mg/3 Ml) 3 ml NEB Q4H PRN PRN Reason: shortness of breath/wheezing Allopurinol (Zyloprim) 300 mg PO DAILY [facility] Last Admin: 09/28/17 08:21 Dose: 300 mg Calcium Carbonate (Calcium Carbonate/Vitamin D 1250 Mg-200 Unit) 1 tab PO DAILY [facility] Last Admin: 09/28/17 08:21 Dose: 1 tab Dextrose/Water (Dextrose 50% In Water) 50 ml IVPUSH ONETIME PRN PRN Reason: Hypoglycemia Ferrous Sulfate (Ferrous Sulfate) 325 mg PO DAILY [facility] Last Admin: 09/28/17 08:20 Dose: 325 mg Gabapentin (Neurontin) 300 mg PO BEDTIME [facility] Heparin Sodium (Porcine) (Heparin Sodium) 5,000 units SUBCUT Q8HR [facility] Last Admin: 09/28/17 05:50 Dose: 5,000 units Piperacillin Sod/Tazobactam (Sod 3.375 gm/ Sodium Chloride) 100 mls @ 200 mls/ hr IV Q6H [facility] Last Admin: 09/28/17 05:48 Dose: 200 mls/hr Insulin Aspart (Novolog) 0 unit SUBCUT TID [facility] Last Admin: 09/28/17 08:21 Dose: 10 units Insulin Aspart (Novolog) 0 unit SUBCUT QID [facility]; Protocol Last Admin: 09/28/17 08:19 Dose: Not Given Insulin Detemir (Levemir) 0 unit SUBCUT BID [facility] Last Admin: 09/28/17 08:21 Dose: 25 units Metoprolol Succinate (Toprol Xl) 50 mg PO DAILY [facility] Multivitamins/Minerals (I-[place]) 1 each PO DAILY [facility] Last Admin: 09/28/17 08:21 Dose: 1 each Non-Formulary Medication (Ascorbic Acid [Vitamin C]) 100 mg PO DAILY [facility] Non-Formulary Medication (Fluticasone Propionate [Flovent Hfa 110 Mcg]) 1 puff INH BID PRN PRN Reason: SHORNTESS OF BREATH Non-Formulary Medication (Melatonin [Melatonin]) 5 mg PO BEDTIME PRN PRN Reason: Sleep Non-Formulary Medication (Sennosides [Senna]) 1 tab PO DAILY [facility] Ondansetron HCl (Zofran Odt) 4 mg PO Q4H PRN PRN Reason: nausea, able to take PO Simvastatin (Zocor) 40 mg PO BEDTIME [facility] Tamsulosin HCl (Flomax) 0.4 mg PO BEDTIME [facility] Discontinued Medications Sodium Chloride (Normal Saline) 1,000 mls @ 500 mls/hr IV .BOLUS ONE Stop: 09/28/17 00:25 Last Admin: 09/27/17 22:56 Dose: 500 mls/hr - Exam General: Alert, Oriented HEENT: Pupils Equal, Pupils Reactive, EOMI, Mucous Membr. Moist/[place] Neck: Supple Lungs: Clear to Auscultation, Normal Respiratory Effort Cardiovascular: Regular Rate, Regular Rhythm GI/Abdominal Exam: Normal Bowel Sounds, Soft, Non-Tender, No Organomegaly, No Distention, No Abnormal Bruit, No Mass, Pelvis Stable (Male) Exam: No Hernia, Normal Inspection, Normal Prostate, Circumcised Back Exam: Normal Inspection, Full Range of Motion Extremities: Normal Inspection, Normal Range of Motion, Non-Tender, No Pedal Edema, Normal Capillary Refill Skin: Warm, Dry, Intact Wound/Incisions: Healing Well Neurological: No New Focal Deficit Psy/Mental Status: Alert, Normal Affect, Normal Mood - Problem List & Annotations (1) Anemia SNOMED Code(s): 720389290 Code(s): D64.9 - ANEMIA, UNSPECIFIED Status: Acute Current Visit: Yes (2) Dyspnea SNOMED Code(s): 230723977 Code(s): R06.00 - DYSPNEA, UNSPECIFIED Status: Acute Current Visit: Yes (3) Orthostatic hypotension SNOMED Code(s): 25760544 Code(s): I95.1 - ORTHOSTATIC HYPOTENSION Status: Acute Current Visit: Yes (4) COPD (chronic obstructive pulmonary disease) SNOMED Code(s): 49237742 Code(s): J44.9 - CHRONIC OBSTRUCTIVE PULMONARY DISEASE, UNSPECIFIED Status : Acute Current Visit: No (5) Coronary artery disease SNOMED Code(s): 88001975 Code(s): I25.10 - ATHSCL HEART DISEASE OF [place] CORONARY ARTERY W/O ANG PCTRS Status: Acute Current Visit: No (6) Diabetes SNOMED Code(s): 82256072 Code(s): E11.9 - TYPE 2 DIABETES MELLITUS WITHOUT COMPLICATIONS Status: Acute Current Visit: No - Problem List Review Problem List Initiated/Reviewed/Updated: Yes - Assessment Assessment:: #Generalized weakness Improving #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
[2017-09-28] MEDS: Metoprolol Succinate 50 MG Tab.ER PO SCH (12:05)
[2017-09-28] MEDS: Sodium Chloride 0.9% 1,000 ML IV SCH (21:31)
[2017-09-28] MEDS: Pantoprazole 40 MG Tab.CR PO SCH (21:33)
[2017-09-28] MEDS: Tamsulosin 0.4 MG Cap.ER PO SCH (21:33)
[2017-09-28] MEDS: Simvastatin 40 MG Tab PO SCH (21:33)
[2017-09-28] MEDS: Zolpidem 5 MG Tab PO PRN (21:34)
[2017-09-28] MEDS: Gabapentin 300 MG Cap PO SCH (21:34)
[2017-09-29] MEDS: Piperacillin/Tazobactam 3.375 GM in Sodium Chloride 0.9% 100 ML IV SCH ×4 (00:02→18:12)
[2017-09-29] MEDS: Ferrous Sulfate 325 MG Tab PO SCH (08:32)
[2017-09-29] MEDS: Lutein/Minerals/Vit A,C & E Tab PO SCH (08:32)
[2017-09-29] MEDS: Calcium Carbonate/Vitamin D3 1250 MG-200 Unit Tab PO SCH (08:32)
[2017-09-29] MEDS: Allopurinol 300 MG Tab PO SCH (08:32)
[2017-09-29] MEDS: Metoprolol Succinate 50 MG Tab.ER PO SCH (08:32)
[2017-09-29] MEDS: Insulin Detemir 100 Units/ML 3 ML Pen SUBCUT SCH ×2 (08:33→21:33)
[2017-09-29] MEDS: Insulin Aspart 100 Units/ML 3 ML Pen SUBCUT SCH ×7 (08:33→21:33)
--- NOTE | 2017-09-29 10:57 | PCM.PN ---
- General Info Date of Service: 09/29/17 Subjective Update: Patient is 77 y/o male with PMH significant for MDS, who presented with increasing weakness and fatigue. He was found to have anemia hb 7.0 and was subsequently admitted. He is pending transfusion tomorrow. He has developed antibodies and due to previous transfusions. His blood unit will be available tomorrow. No dizziness, chest pain. His fatigue and weakness has improved since admission. He denies any new complaints this morning. No bleed. Functional Status: Reports: Pain Controlled - Review of Systems General: Reports: No Symptoms HEENT: Reports: No Symptoms Pulmonary: Reports: No Symptoms Cardiovascular: Reports: No Symptoms Gastrointestinal: Reports: No Symptoms Genitourinary: Reports: No Symptoms Musculoskeletal: Reports: No Symptoms Skin: Reports: No Symptoms Neurological: Reports: No Symptoms Psychiatric: Reports: No Symptoms - Patient Data Vitals - Most Recent: Last Vital Signs Temp 99.1 F 09/29/17 10:30 Pulse 59 L 09/29/17 10:37 Resp 16 09/29/17 10:37 BP 123/44 L 09/29/17 10:37 Pulse Ox 97 09/29/17 10:37 Orthostatic Blood Pressure [ 77/37 Standing] Orthostatic Blood Pressure [ 67/49 Sitting] Orthostatic Blood Pressure [ 115/49 Supine] Weight - Most Recent: 196 lb 9.6 oz I&O - Last 24 Hours: Intake & Output 09/28/17 09/29/17 09/29/17 22:59 06:59 14:59 Intake Total 445 1262 28 Output Total 725 400 Balance 445 537 -372 Lab Results Last 24 Hours: Laboratory Results - last 24 hr 09/28/17 09/28/17 09/28/17 Range/Units 06:03 11:03 17:08 WBC (5.0-10.0) 10^3/uL RBC (4.6-6.2) 10^6/uL Hgb (14.0-18.0) g/dL Hct (40.0-54.0) % MCV (80-100) fL MCH (27.0-34.0) pg MCHC (33.0-35.0) g/dL Plt Count (150-450) 10^3/uL POC Glucose 155 H 114 H (83-110) mg/dl Blood Type B POSITIVE Gel Antibody Screen Negative Crossmatch See Detail 09/28/17 09/28/17 09/29/17 Range/Units 18:11 21:04 07:46 WBC 3.7 L (5.0-10.0) 10^3/uL RBC 2.48 L (4.6-6.2) 10^6/uL Hgb 6.7 L* (14.0-18.0) g/dL Hct 22.9 L (40.0-54.0) % MCV 92.3 (80-100) fL MCH 27.0 (27.0-34.0) pg MCHC 29.3 L (33.0-35.0) g/dL Plt Count 51 L (150-450) 10^3/uL POC Glucose 103 80 L (83-110) mg/dl Blood Type Gel Antibody Screen Crossmatch Estuardo Results Last 24 Hours: Microbiology 09/28/17 07:40 Urine Culture - Preliminary Urine, Clean Catch NO GROWTH AFTER 1 DAY 09/27/17 00:16 Aerobic Blood Culture - Preliminary Blood - Venous NO GROWTH AFTER 1 DAY Anaerobic Blood Culture - Preliminary NO GROWTH AFTER 1 DAY 09/28/17 00:18 Aerobic Blood Culture - Preliminary Blood - Venous - Lab Draw NO GROWTH AFTER 1 DAY Anaerobic Blood Culture - Final Med Orders - Current: Current Medications Albuterol (Proventil Hfa) 0 gm INH ASDIRECTED PRN PRN Reason: Shortness of Breath Albuterol/Ipratropium (Duoneb 3.0-0.5 Mg/3 Ml) 3 ml NEB Q4H PRN PRN Reason: shortness of breath/wheezing Allopurinol (Zyloprim) 300 mg PO DAILY [facility] Last Admin: 09/29/17 08:32 Dose: 300 mg Calcium Carbonate (Calcium Carbonate/Vitamin D 1250 Mg-200 Unit) 1 tab PO DAILY [facility] Last Admin: 09/29/17 08:32 Dose: 1 tab Dextrose/Water (Dextrose 50% In Water) 50 ml IVPUSH ONETIME PRN PRN Reason: Hypoglycemia Ferrous Sulfate (Ferrous Sulfate) 325 mg PO DAILY [facility] Last Admin: 09/29/17 08:32 Dose: 325 mg Gabapentin (Neurontin) 300 mg PO BEDTIME [facility] Last Admin: 09/28/17 21:34 Dose: 300 mg Piperacillin Sod/Tazobactam (Sod 3.375 gm/ Sodium Chloride) 100 mls @ 200 mls/ hr IV Q6H [facility] Last Admin: 09/29/17 05:28 Dose: 200 mls/hr Sodium Chloride (Normal Saline) 1,000 mls @ 75 mls/hr IV ASDIRECTED [facility] Last Admin: 09/28/17 21:31 Dose: 75 mls/hr Insulin Aspart (Novolog) 0 unit SUBCUT QID [facility]; Protocol Last Admin: 09/29/17 08:33 Dose: Not Given Insulin Aspart (Novolog) 10 unit SUBCUT 0900,1300,1700 [facility] Last Admin: 09/29/17 08:34 Dose: 10 units Insulin Detemir (Levemir) 0 unit SUBCUT BID [facility] Last Admin: 09/29/17 08:33 Dose: 25 units Metoprolol Succinate (Toprol Xl) 50 mg PO DAILY [facility] Last Admin: 09/29/17 08:32 Dose: 50 mg Multivitamins/Minerals (I-Santiago) 1 each PO DAILY [facility] Last Admin: 09/29/17 08:32 Dose: 1 each Non-Formulary Medication (Ascorbic Acid [Vitamin C]) 100 mg PO DAILY [facility] Non-Formulary Medication (Fluticasone Propionate [Flovent Hfa 110 Mcg]) 1 puff INH BID PRN PRN Reason: SHORNTESS OF BREATH Non-Formulary Medication (Melatonin [Melatonin]) 5 mg PO BEDTIME PRN PRN Reason: Sleep Non-Formulary Medication (Sennosides [Senna]) 1 tab PO DAILY [facility] Ondansetron HCl (Zofran Odt) 4 mg PO Q4H PRN PRN Reason: nausea, able to take PO Pantoprazole Sodium (Protonix) 40 mg PO BEDTIME [facility] Last Admin: 09/28/17 21:33 Dose: 40 mg Simvastatin (Zocor) 40 mg PO BEDTIME [facility] Last Admin: 09/28/17 21:33 Dose: 40 mg Tamsulosin HCl (Flomax) 0.4 mg PO BEDTIME [facility] Last Admin: 09/28/17 21:33 Dose: 0.4 mg Zolpidem Tartrate (Ambien) 5 mg PO BEDTIME PRN PRN Reason: Sleep Last Admin: 09/28/17 21:34 Dose: 5 mg Discontinued Medications Heparin Sodium (Porcine) (Heparin Sodium) 5,000 units SUBCUT Q8HR [facility] Last Admin: 09/28/17 14:14 Dose: 5,000 units Sodium Chloride (Normal Saline) 1,000 mls @ 500 mls/hr IV .BOLUS ONE Stop: 09/28/17 00:25 Last Admin: 09/27/17 22:56 Dose: 500 mls/hr Insulin Aspart (Novolog) 0 unit SUBCUT TID [facility] Last Admin: 09/28/17 13:16 Dose: Not Given - Exam General: Alert, Oriented HEENT: Pupils Equal, Pupils Reactive, EOMI, Mucous Membr. Moist/[place] Neck: Supple Lungs: Clear to Auscultation, Normal Respiratory Effort Cardiovascular: Regular Rate, Regular Rhythm GI/Abdominal Exam: Normal Bowel Sounds, Soft, Non-Tender, No Organomegaly, No Distention, No Abnormal Bruit, No Mass, Pelvis Stable (Male) Exam: No Hernia, Normal Inspection, Normal Prostate, Circumcised Back Exam: Normal Inspection, Full Range of Motion Extremities: Normal Inspection, Normal Range of Motion, Non-Tender, No Pedal Edema, Normal Capillary Refill Skin: Warm, Dry, Intact Wound/Incisions: Healing Well Neurological: No New Focal Deficit Psy/Mental Status: Alert, Normal Affect, Normal Mood - Problem List & Annotations (1) Anemia SNOMED Code(s): 362830811 Code(s): D64.9 - ANEMIA, UNSPECIFIED Status: Acute Current Visit: Yes (2) Dyspnea SNOMED Code(s): 588982312 Code(s): R06.00 - DYSPNEA, UNSPECIFIED Status: Acute Current Visit: Yes (3) Orthostatic hypotension SNOMED Code(s): 97975208 Code(s): I95.1 - ORTHOSTATIC HYPOTENSION Status: Acute Current Visit: Yes (4) COPD (chronic obstructive pulmonary disease) SNOMED Code(s): 06524547 Code(s): J44.9 - CHRONIC OBSTRUCTIVE PULMONARY DISEASE, UNSPECIFIED Status : Acute Current Visit: No (5) Coronary artery disease SNOMED Code(s): 26831288 Code(s): I25.10 - ATHSCL HEART DISEASE OF [place] CORONARY ARTERY W/O ANG PCTRS Status: Acute Current Visit: No (6) Diabetes SNOMED Code(s): 99495593 Code(s): E11.9 - TYPE 2 DIABETES MELLITUS WITHOUT COMPLICATIONS Status: Acute Current Visit: No - Problem List Review Problem List Initiated/Reviewed/Updated: Yes - My Orders Last 24 Hours: My Active Orders 09/28/17 20:23 Zolpidem [Ambien] 5 mg PO BEDTIME PRN 09/28/17 20:30 Sodium Chloride 0.9% [Normal Saline] 1,000 ml IV ASDIRECTED 09/28/17 21:00 Pantoprazole [ProTONIX] 40 mg PO BEDTIME 09/28/17 21:26 Sequential Compression Device [OM.PC] Routine 09/29/17 07:21 OT Evaluation and Treatment [CONS] Routine 09/29/17 10:00 Transfuse RBC [Transfuse Red Blood Cells] [COMM] Routine 09/29/17 Breakfast Full Liquid Diet [DIET] - Assessment Assessment:: #Generalized weakness Improving #Acute on chronic anemia due to MD For transfusion with 2 units today #thrombocytopenia due to MDS Will monitor closely #MARC on CKD Likely pre-renal Continue IVF Avoid nephrotoxic agents Daily bmp #possible pneumonia #DVT ppx SCD giving thrombocytopenia
--- NOTE | 2017-09-29 14:25 | EKG ---
09/27/2017 - ANTOINE KNAPP - TIME: 9:14 p.m. FINDINGS: Sinus rhythm of 54 with left bundle-branch block. [facility] /[id number]
[2017-09-29] MEDS: Fluconazole 100 MG Tab PO SCH (16:34)
[2017-09-29] MEDS: Nystatin Susp 100,000 Unit/ML 5 ML UD Cup PO SCH ×2 (16:34→21:33)
[2017-09-29] MEDS: Sodium Chloride 0.9% 1,000 ML IV SCH (17:54)
[2017-09-29] MEDS: Pantoprazole 40 MG Tab.CR PO SCH (21:32)
[2017-09-29] MEDS: Zolpidem 5 MG Tab PO PRN (21:32)
[2017-09-29] MEDS: Simvastatin 40 MG Tab PO SCH (21:32)
[2017-09-29] MEDS: Gabapentin 300 MG Cap PO SCH (21:32)
[2017-09-29] MEDS: Tamsulosin 0.4 MG Cap.ER PO SCH (21:33)
[2017-09-30] MEDS: Piperacillin/Tazobactam 3.375 GM in Sodium Chloride 0.9% 100 ML IV SCH ×3 (00:19→12:41)
[2017-09-30 07:01] LABS: CHLORIDE,CL 105 mmol/L (101-111); SODIUM,NA 139 mmol/L (135-145)
[2017-09-30] MEDS ORDERED: ASCORBIC ACID 100 MG PO SCH (09:00)
[2017-09-30] MEDS: Insulin Detemir 100 Units/ML 3 ML Pen SUBCUT SCH (09:51)
[2017-09-30] MEDS: Lutein/Minerals/Vit A,C & E Tab PO SCH (09:51)
[2017-09-30] MEDS: Fluconazole 100 MG Tab PO SCH (09:51)
[2017-09-30] MEDS: Ferrous Sulfate 325 MG Tab PO SCH (09:51)
[2017-09-30] MEDS: Calcium Carbonate/Vitamin D3 1250 MG-200 Unit Tab PO SCH (09:51)
[2017-09-30] MEDS: Insulin Aspart 100 Units/ML 3 ML Pen SUBCUT SCH ×4 (09:53→12:28)
[2017-09-30] MEDS: Metoprolol Succinate 50 MG Tab.ER PO SCH (09:55)
[2017-09-30] MEDS: Allopurinol 300 MG Tab PO SCH (09:55)
[2017-09-30] MEDS: Nystatin Susp 100,000 Unit/ML 5 ML UD Cup PO SCH ×2 (10:53→12:41)
[2017-09-30 11:11] VITALS: BP 153/55
--- NOTE | 2017-09-30 12:35 | PCM.DCSUM1 ---
Discharge Summary - Hospital Course Free Text/Narrative:: 77-year-old gentleman with a history of myelodysplasia. He presented with weakness. Was found to have pancytopenia with significant anemia. He was transfused with 2 units of PRBC on 29 September. He was noted to have acute renal failure which improved with hydration. The patient had complains of cough. Chest x-ray was showing infiltrate versus atelectasis. Was treated with antibiotic and he will finish a few more days of oral levofloxacin. The patient will be discharged in a stable condition. - Discharge Data Discharge Date: 09/30/17 Discharge Disposition: Home, Self-Care 01 Condition: Fair - Patient Summary/Data Consults: Consultations 09/29/17 07:21 OT Evaluation and Treatment [CONS] Routine - Patient Instructions Diet: Heart Healthy Diet Activity: As Tolerated - Discharge Plan Prescriptions/Med Rec: Levofloxacin 500 mg PO DAILY #7 tablet Home Medications: Home Meds Allopurinol 300 mg PO DAILY 02/12/15 [History] Furosemide 40 mg PO DAILY 02/12/15 [History] Indapamide 2.5 mg PO DAILY 02/12/15 [History] Lisinopril/Hydrochlorothiazide [Lisinopril-Hctz 20-12.5 mg Tab] 0.5 tab PO DAILY 02/12/15 [History] Metoprolol Succinate [Toprol XL] 50 mg PO DAILY 02/12/15 [History] Simvastatin 40 mg PO BEDTIME 02/12/15 [History] Tamsulosin HCl 0.4 mg PO BEDTIME 02/12/15 [History] Fluticasone Propionate [Flovent HFA 110 MCG] 1 - 2 puff INH BID PRN 08/03/16 [ History] Ascorbic Acid [Vitamin C] 100 mg PO DAILY 11/06/16 [History] Calcium Carb & Citrate/Vit D3 [Calcium + D3 ER Tablet] 1 tab PO DAILY 11/06/16 [ History] Ferrous Sulfate [Iron] 1 tab PO DAILY 11/06/16 [History] Gabapentin [Neurontin] 300 mg PO BEDTIME 11/06/16 [History] Lutein/Minerals/Vit A,C & E [Ocuvite] 1 tab PO DAILY 11/06/16 [History] Sennosides [Senna] 1 tab PO DAILY 11/06/16 [History] Melatonin 5 mg PO BEDTIME PRN 11/09/16 [History] Insulin Lispro [Humalog Kwikpen U-100] 10 units SQ TID 06/11/17 [History] Albuterol [Ventolin HFA] 2 puff INH ASDIRECTED PRN 07/23/17 [History] Insulin Glarg,Human.Rec.Analog [Lantus] 25 units SQ BID 07/23/17 [History] Levofloxacin 500 mg PO DAILY #7 tablet 09/30/17 [Rx] Forms: ED Department Discharge Referrals: PCP,Unobtain [Ordering Only Provider] - (dr. Rodas = next week) - Discharge Summary/Plan Comment DC Time >30 min.: No - General Info Date of Service: 09/30/17 Functional Status: Reports: Pain Controlled - Review of Systems General: Denies: Fever, Weakness Pulmonary: Reports: Cough. Denies: Shortness of Breath, Sputum Cardiovascular: Denies: Chest Pain Gastrointestinal: Denies: Abdominal Pain Neurological: Denies: Confusion - Patient Data Vitals - Most Recent: Last Vital Signs Temp 36.6 C 09/30/17 11:11 Pulse 56 L 09/30/17 11:11 Resp 20 09/30/17 11:11 BP 153/55 H 09/30/17 11:11 Pulse Ox 100 09/30/17 11:11 Orthostatic Blood Pressure [ 77/37 Standing] Orthostatic Blood Pressure [ 67/49 Sitting] Orthostatic Blood Pressure [ 115/49 Supine] Weight - Most Recent: 89.176 kg I&O - Last 24 hours: Intake & Output 09/29/17 09/30/17 09/30/17 22:59 06:59 14:59 Intake Total 646 1500 Output Total 250 500 Balance 396 1000 Lab Results - Last 24 hrs: Laboratory Results - last 24 hr 09/28/17 09/29/17 09/29/17 Range/Units 06:03 17:08 20:10 WBC (5.0-10.0) 10^3/uL RBC (4.6-6.2) 10^6/uL Hgb (14.0-18.0) g/dL Hct (40.0-54.0) % MCV (80-100) fL MCH (27.0-34.0) pg MCHC (33.0-35.0) g/dL Plt Count (150-450) 10^3/uL Neut % (Auto) (42.2-75.2) % Lymph % (Auto) (20.5-50.1) % [place] % (Auto) (2-8) % Eos % (Auto) (1.0-3.0) % Baso % (Auto) (0.0-1.0) % Sodium 137 (135-145) mmol/L Potassium 4.5 (3.6-5.0) mmol/L Chloride 103 (101-111) mmol/L Carbon Dioxide 27.0 (21.0-31.0) mmol/L Anion Gap 11.5 BUN 17 D (7-18) mg/dL Creatinine 1.2 (0.6-1.3) mg/dL Est Cr Clr Drug Dosing 52.38 mL/min Estimated GFR (MDRD) 59 Glucose 174 H (74-105) mg/dL POC Glucose 105 (83-110) mg/dl Calcium 8.4 (8.4-10.2) mg/dl Blood Type B POSITIVE Gel Antibody Screen Negative Crossmatch See Detail 09/29/17 09/29/17 09/30/17 Range/Units 20:10 21:15 06:10 WBC 4.5 L (5.0-10.0) 10^3/uL RBC 3.11 L (4.6-6.2) 10^6/uL Hgb 8.7 L D (14.0-18.0) g/dL Hct 27.9 L (40.0-54.0) % MCV 89.7 (80-100) fL MCH 28.0 (27.0-34.0) pg MCHC 31.2 L (33.0-35.0) g/dL Plt Count 51 L (150-450) 10^3/uL Neut % (Auto) (42.2-75.2) % Lymph % (Auto) (20.5-50.1) % [place] % (Auto) (2-8) % Eos % (Auto) (1.0-3.0) % Baso % (Auto) (0.0-1.0) % Sodium 139 (135-145) mmol/L Potassium 4.3 (3.6-5.0) mmol/L Chloride 105 (101-111) mmol/L Carbon Dioxide 29.0 (21.0-31.0) mmol/L Anion Gap 9.3 BUN 14 (7-18) mg/dL Creatinine 1.1 (0.6-1.3) mg/dL Est Cr Clr Drug Dosing 57.15 mL/min Estimated GFR (MDRD) > 60 Glucose 98 (74-105) mg/dL POC Glucose 156 H (83-110) mg/dl Calcium 8.5 (8.4-10.2) mg/dl Blood Type Gel Antibody Screen Crossmatch 09/30/17 09/30/17 09/30/17 Range/Units 06:10 07:45 11:02 WBC 4.0 L (5.0-10.0) 10^3/uL RBC 3.14 L (4.6-6.2) 10^6/uL Hgb 8.8 L (14.0-18.0) g/dL Hct 28.3 L (40.0-54.0) % MCV 90.1 (80-100) fL MCH 28.0 (27.0-34.0) pg MCHC 31.1 L (33.0-35.0) g/dL Plt Count 46 L* (150-450) 10^3/uL Neut % (Auto) 69.3 (42.2-75.2) % Lymph % (Auto) 25.1 (20.5-50.1) % [place] % (Auto) 2.3 (2-8) % Eos % (Auto) 0.5 L (1.0-3.0) % Baso % (Auto) 2.8 H (0.0-1.0) % Sodium (135-145) mmol/L Potassium (3.6-5.0) mmol/L Chloride (101-111) mmol/L Carbon Dioxide (21.0-31.0) mmol/L Anion Gap BUN (7-18) mg/dL Creatinine (0.6-1.3) mg/dL Est Cr Clr Drug Dosing mL/min Estimated GFR (MDRD) Glucose (74-105) mg/dL POC Glucose 106 192 H (83-110) mg/dl Calcium (8.4-10.2) mg/dl Blood Type Gel Antibody Screen Crossmatch MARCELL Results - Last 24 hrs: Microbiology 09/28/17 07:40 Urine Culture - Final Urine, Clean Catch 09/27/17 00:16 Aerobic Blood Culture - Preliminary Blood - Venous NO GROWTH AFTER 2 DAYS Anaerobic Blood Culture - Preliminary NO GROWTH AFTER 2 DAYS 09/28/17 00:18 Aerobic Blood Culture - Preliminary Blood - Venous - Lab Draw NO GROWTH AFTER 2 DAYS Anaerobic Blood Culture - Final Med Orders - Current: Current Medications Albuterol (Proventil Hfa) 0 gm INH ASDIRECTED PRN PRN Reason: Shortness of Breath Albuterol/Ipratropium (Duoneb 3.0-0.5 Mg/3 Ml) 3 ml NEB Q4H PRN PRN Reason: shortness of breath/wheezing Allopurinol (Zyloprim) 300 mg PO DAILY [facility] Last Admin: 09/30/17 09:55 Dose: 300 mg Calcium Carbonate (Calcium Carbonate/Vitamin D 1250 Mg-200 Unit) 1 tab PO DAILY [facility] Last Admin: 09/30/17 09:51 Dose: 1 tab Dextrose/Water (Dextrose 50% In Water) 50 ml IVPUSH ONETIME PRN PRN Reason: Hypoglycemia Ferrous Sulfate (Ferrous Sulfate) 325 mg PO DAILY [facility] Last Admin: 09/30/17 09:51 Dose: 325 mg Fluconazole (Diflucan) 100 mg PO DAILY [facility] Stop: 10/05/17 07:00 Last Admin: 09/30/17 09:51 Dose: 100 mg Gabapentin (Neurontin) 300 mg PO BEDTIME [facility] Last Admin: 09/29/17 21:32 Dose: 300 mg Piperacillin Sod/Tazobactam (Sod 3.375 gm/ Sodium Chloride) 100 mls @ 200 mls/ hr IV Q6H [facility] Last Admin: 09/30/17 05:56 Dose: 200 mls/hr Sodium Chloride (Normal Saline) 1,000 mls @ 75 mls/hr IV ASDIRECTED [facility] Last Admin: 09/29/17 17:54 Dose: 75 mls/hr Insulin Aspart (Novolog) 0 unit SUBCUT QID [facility]; Protocol Last Admin: 09/30/17 12:27 Dose: 1 unit Insulin Aspart (Novolog) 10 unit SUBCUT 0900,1300,1700 [facility] Last Admin: 09/30/17 12:28 Dose: 10 unit Insulin Detemir (Levemir) 0 unit SUBCUT BID [facility] Last Admin: 09/30/17 09:51 Dose: 25 units Metoprolol Succinate (Toprol Xl) 50 mg PO DAILY [facility] Last Admin: 09/30/17 09:55 Dose: 50 mg Multivitamins/Minerals (I-Santiago) 1 each PO DAILY [facility] Last Admin: 09/30/17 09:51 Dose: 1 each Nystatin (Mycostatin) 5 ml PO QID [facility] Last Admin: 09/30/17 10:53 Dose: 5 ml Ondansetron HCl (Zofran Odt) 4 mg PO Q4H PRN PRN Reason: nausea, able to take PO Pantoprazole Sodium (Protonix) 40 mg PO BEDTIME [facility] Last Admin: 09/29/17 21:32 Dose: 40 mg Ascorbic Acid [ Vitamin C] 100 Mg Pt's Own Med 0 each PO DAILY [facility] Last Admin: 09/30/17 09:56 Dose: Not Given Fluticasone Propionate [Flovent Hfa 110 Mcg] Pt's Own Med 0 each INH BID PRN PRN Reason: SHORNTESS OF BREATH Melatonin 5 Mg Pt' (s Own Med) 0 each PO BEDTIME PRN PRN Reason: Sleep Senna/Docusate Sodium (Senna Plus) 1 tab PO DAILY [facility] Last Admin: 09/30/17 09:51 Dose: 1 tab Simvastatin (Zocor) 40 mg PO BEDTIME [facility] Last Admin: 09/29/17 21:32 Dose: 40 mg Tamsulosin HCl (Flomax) 0.4 mg PO BEDTIME [facility] Last Admin: 09/29/17 21:33 Dose: 0.4 mg Zolpidem Tartrate (Ambien) 5 mg PO BEDTIME PRN PRN Reason: Sleep Last Admin: 09/29/17 21:32 Dose: 5 mg Discontinued Medications Heparin Sodium (Porcine) (Heparin Sodium) 5,000 units SUBCUT Q8HR [facility] Last Admin: 09/28/17 14:14 Dose: 5,000 units Sodium Chloride (Normal Saline) 1,000 mls @ 500 mls/hr IV .BOLUS ONE Stop: 09/28/17 00:25 Last Admin: 09/27/17 22:56 Dose: 500 mls/hr Insulin Aspart (Novolog) 0 unit SUBCUT TID [facility] Last Admin: 09/28/17 13:16 Dose: Not Given - Exam General: Reports: Alert, Oriented Neck: Reports: Supple Lungs: Reports: Clear to Auscultation, Normal Respiratory Effort Cardiovascular: Reports: Regular Rate, Regular Rhythm Extremities: No Pedal Edema
== END 2017-09-30 13:59 | disposition home or self-care (01) | DRG 811 ==
LOC: DL.ED 20:49 → UNDOADMIN 22:56 → DL.MS 22:56
PROVIDERS: ADMIT Internal Medicine; ATTEND Internal Medicine
PROC: 30233N1 Transfusion of Nonautologous Red Blood Cells into Peripheral Vein, Percutaneous Approach (ICD-10-PCS; principal; 2017-09-29)
DX: D46.9 Myelodysplastic syndrome, unspecified (principal); J18.9 Pneumonia, unspecified organism; C95.90 Leukemia, unspecified not having achieved remission; D61.818 Other pancytopenia; E87.1 Hypo-osmolality and hyponatremia; N17.9 Acute kidney failure, unspecified; B37.81 Candidal esophagitis; I95.1 Orthostatic hypotension; H40.9 Unspecified glaucoma; H91.90 Unspecified hearing loss, unspecified ear; H54.7 Unspecified visual loss; E11.22 Type 2 diabetes mellitus with diabetic chronic kidney disease; I12.9 Hypertensive chronic kidney disease with stage 1 through stage 4 chronic kidney disease, or unspecified chronic kidney disease; N18.9 Chronic kidney disease, unspecified; E86.0 Dehydration; I48.91 Unspecified atrial fibrillation; I10 Essential (primary) hypertension; J44.9 Chronic obstructive pulmonary disease, unspecified; G47.30 Sleep apnea, unspecified; R91.1 Solitary pulmonary nodule; E78.5 Hyperlipidemia, unspecified; I25.10 Atherosclerotic heart disease of native coronary artery without angina pectoris; K59.09 Other constipation; N40.0 Benign prostatic hyperplasia without lower urinary tract symptoms; E11.21 Type 2 diabetes mellitus with diabetic nephropathy; M19.90 Unspecified osteoarthritis, unspecified site; G89.29 Other chronic pain; Z95.5 Presence of coronary angioplasty implant and graft; R06.00 Dyspnea, unspecified; R05 Cough; D64.9 Anemia, unspecified; M54.9 Dorsalgia, unspecified; M10.9 Gout, unspecified; J30.89 Other allergic rhinitis; L50.9 Urticaria, unspecified; E66.9 Obesity, unspecified; Z68.30 Body mass index [BMI] 30.0-30.9, adult; Z88.1 Allergy status to other antibiotic agents; Z88.8 Allergy status to other drugs, medicaments and biological substances; Z79.4 Long term (current) use of insulin; Z79.899 Other long term (current) drug therapy; Z96.652 Presence of left artificial knee joint; Z95.9 Presence of cardiac and vascular implant and graft, unspecified; Z87.891 Personal history of nicotine dependence; Z92.21 Personal history of antineoplastic chemotherapy; Z28.21 Immunization not carried out because of patient refusal
CPT/HCPCS: 36415; 71045; 80053; 83880; 84484; 85025; 87040; 93005; 93010; 96360; 99284; J7030; 36430; 80048; 81001; 82962; 83735; 84100; 85027; 86850; 86900; 86901; 86920; 86922; 86945; 87086; 96361; A9270-GY; J1642; J1644; J1815-GY; J2543; J7050; P9016

== ENCOUNTER 2018-08-10 11:12 | Emergency (ER) | payer MEDICARE, BC ==
--- NOTE | 2018-08-10 12:53 | EDM.PDOC ---
ED HPI GENERAL MEDICAL PROBLEM - General Chief Complaint: Respiratory Problem Stated Complaint: sent from clinic Time Seen by Provider: 08/10/18 12:53 Source of Information: Reports: Patient History Limitations: Reports: No Limitations - History of Present Illness INITIAL COMMENTS - FREE TEXT/NARRATIVE: Patient comes emergency Department today from the clinic for further evaluation of a cough. The patient has had a cough for 3 weeks. He has a history of COPD as well as leukemia. He is not actively receiving any treatments for leukemia that has been nonresponsive to chemotherapy. He is on supportive care only at this time. He does have a history of COPD. He has had a cough with increase sputum production. Subjective fever and chills. No pain in his chest. No weakness dizziness lightheadedness. A little bit more short of breath with physical activity but no shortness of breath at rest. - Related Data Allergies Allergy/AdvReac Type Severity Reaction Status Date / Time cefuroxime [From Ceftin] Allergy Mild Nausea and Verified 08/10/18 12:13 Vomiting metformin Allergy Diarrhea Verified 08/10/18 12:13 spironolactone AdvReac Diarrhea Verified 08/10/18 12:13 antifungal cream Allergy Hives Uncoded 08/10/18 12:13 dust mite extract Allergy Shortness Uncoded 08/10/18 12:13 of Breath seasonal Allergy Shortness Uncoded 08/10/18 12:13 of Breath Home Meds: Home Meds Allopurinol 300 mg PO DAILY 02/12/15 [History] Metoprolol Succinate [Toprol XL] 50 mg PO DAILY 02/12/15 [History] Tamsulosin HCl 0.4 mg PO BEDTIME 02/12/15 [History] Fluticasone Propionate [Flovent HFA 110 MCG] 1 - 2 puff INH BID PRN 08/03/16 [ History] Ferrous Sulfate [Iron] 1 tab PO DAILY 11/06/16 [History] Gabapentin [Neurontin] 300 mg PO BEDTIME 11/06/16 [History] Lutein/Minerals/Vit A,C & E [Ocuvite] 1 tab PO DAILY 11/06/16 [History] Sennosides [Senna] 1 tab PO DAILY 11/06/16 [History] Melatonin 5 mg PO BEDTIME PRN 11/09/16 [History] Nitroglycerin [Nitrostat] 1 tab SL ASDIRECTED PRN 02/11/18 [History] Albuterol Sulfate [Proair Hfa] 1 inh PO DAILY 06/10/18 [History] Esomeprazole [NexIUM] 40 mg PO DAILY 06/28/18 [History] Past Medical History HEENT History: Reports: Hard of Hearing Other HEENT History: WEARS CORRECTIVE LENS Cardiovascular History: Reports: Afib, Hypertension, Stents Respiratory History: Reports: Asthma, COPD, Sleep Apnea, Other (See Below) Other Respiratory History: LUNG NODULE Gastrointestinal History: Reports: Chronic Constipation, Hiatal Hernia Genitourinary History: Reports: BPH, Diabetic Nephropathy Musculoskeletal History: Reports: Arthritis, Back Pain, Chronic, Fracture, Gout , Osteoarthritis Neurological History: Reports: None Psychiatric History: Reports: None Endocrine/Metabolic History: Reports: Diabetes, Type II, Obesity/BMI 30+ Hematologic History: Reports: Anemia, Blood Transfusion(s), Other (See Below) Other Hematologic History: MYELODYSPLASTIC SYNDROME, PANCYTOPENIA Immunologic History: Reports: Immunosuppression Oncologic (Cancer) History: Reports: Leukemia Dermatologic History: Reports: Urticaria - Infectious Disease History Infectious Disease History: Reports: Chicken Pox, Measles Other Infectious Disease History: uncertain - Past Surgical History Head Surgeries/Procedures: Reports: None HEENT Surgical History: Reports: Cataract Surgery, Tonsillectomy Cardiovascular Surgical History: Reports: Coronary Artery Stent Respiratory Surgical History: Reports: Lung Biopsies GI Surgical History: Reports: Colonoscopy Male Surgical History: Reports: TURP-Transurethral Resection of Prostate Endocrine Surgical History: Reports: None Musculoskeletal Surgical History: Reports: Knee Replacement, Other (See Below) Other Musculoskeletal Surgeries/Procedures:: BACK SURG. LEFT KNEE REPLACEMENT Oncologic Surgical History: Reports: None Dermatological Surgical History: Reports: None Social & Family History - Family History Family Medical History: Noncontributory - Caffeine Use Caffeine Use: Reports: Coffee Other Caffeine Use: 8 OZ DAILY Caffeine Use Comment: 8 oz daily ED ROS GENERAL - Review of Systems Review Of Systems: ROS reveals no pertinent complaints other than HPI. ED EXAM, GENERAL - Physical Exam Exam: See Below Free Text/Narrative:: He is not visibly dyspneic Exam Limited By: No Limitations General Appearance: Alert, WD/WN, No Apparent Distress Eye Exam: Bilateral Eye: Normal Inspection, PERRL Ears: Normal External Exam Nose: Normal Inspection, Normal Mucosa Throat/Mouth: No: Normal Inspection (There is some mild erythema of the soft palate as well as some white plaques consistent with Ailyn infection.) Head: Atraumatic, Normocephalic Neck: Normal Inspection, Supple, Non-Tender Respiratory/Chest: No Accessory Muscle Use, Chest Non-Tender, Decreased Breath Sounds (Throughout), Wheezing (Late expiratory wheezing bilaterally). No: Rales , Rhonchi Cardiovascular: Normal Peripheral Pulses, Regular Rate, Rhythm GI/Abdominal: Normal Bowel Sounds, Soft, Non-Tender Back Exam: Normal Inspection, Full Range of Motion Extremities: Normal Inspection, Normal Range of Motion, No Pedal Edema, Normal Capillary Refill Neurological: Alert, Oriented, Normal Cognition, No Motor/Sensory Deficits Psychiatric: Normal Affect, Normal Mood Skin Exam: Warm, Dry, Intact, Normal Color Course - Vital Signs Last Recorded V/S: Last Vital Signs Temp 37.3 C 08/10/18 14:13 Pulse 60 08/10/18 14:13 Resp 18 08/10/18 14:13 BP 126/46 L 08/10/18 14:13 Pulse Ox 96 08/10/18 14:13 - Orders/Labs/Meds Meds: Medications Discontinued Medications Generic Name Dose Route Start Last Admin Trade Name Freq PRN Reason Stop Dose Admin Al Hydroxide/Mg Hydroxide 30 ml 08/10/18 15:01 Gi Cocktail PO 08/10/18 15:02 ONETIME ONE - Radiology Interpretation Free Text/Narrative:: Chest x-ray per radiology shows a persistent suspicious abnormality of the left lung base. No acute cardiopulmonary abnormality. No focal lobar consolidation no signs of pneumonia - Re-Assessments/Exams Free Text/Narrative Re-Assessment/Exam: 08/10/18 I did review his laboratory evaluation shows that his white count and hemoglobin are stable. He was much improved following the nebulizer. He does have oral Ailyn infection on the soft palate and some generalized irritation of the pharynx. He has been on nystatin for 2-3 courses. We will give him some prednisone for the next couple of days and DuoNeb nebulizer and azithromycin. Also a two-week course of oral Diflucan for the oral Ailyn. He needs to recheck to ensure that this is clearing. In aspect of his sore throat and coughing most likely is due to the continued Ailyn infection. Patient is comfortable with the plan his questions are answered. Departure - Departure Time of Disposition: 15:05 Disposition: Home, Self-Care 01 Clinical Impression: COPD with exacerbation, Oral candidiasis - Discharge Information Instructions: Chronic Obstructive Pulmonary Disease Exacerbation, Cough, Adult , [id number], Oral Thrush, Adult Referrals: Hernesto Rodas MD [Primary Care Provider] - Forms: ED Department Discharge Additional Instructions: Z pack, 2 tabs day one and then 1 tab daily until gone. Fluconazole 1 tablet daily for 2 weeks RX given to the patient. Prednisone 20mg every day for 5 days. Duo-Neb nebulizer, 1 ampule twice daily as needed for cough. RX given to the patient. Return to the ED if new or worsening symptoms. Follow up primary care in a week for recheck. - Assessment/Plan Assessment:: Acute mild COPD exacerbation Current oral Ailyn infection Plan: Z pack, 2 tabs day one and then 1 tab daily until gone. Fluconazole 1 tablet daily for 2 weeks RX given to the patient. Prednisone 20mg every day for 5 days. Duo-Neb nebulizer, 1 ampule twice daily as needed for cough. RX given to the patient. Return to the ED if new or worsening symptoms. Follow up primary care in a week for recheck.
[2018-08-10 14:15] VITALS: BP 126/46
--- NOTE | 2018-08-10 14:52 | CR ---
CLINICAL HISTORY: 78-year-old diabetic male with COPD, laryngeal "cancer", left lower lobe "atelectasis" reported April 2018. INTERPRETATION: Abnormal. PA lateral chest film confirms asymmetric dense consolidation left lower lobe with what appears to be underlying round mass and ipsilateral pleural reactive changes. No pneumothorax but abnormal appearance underlying anterolateral left seventh and eighth ribs (pathologic fracture?). Recommend CT scan of the chest and/or left lower lobe bronchoscopy. Right supraclavicular central venous line and chronic eventration right hemidiaphragm. Normal cardiac silhouette without cephalization of vascular flow, new signs of alveolar edema or dependent pleural effusion on the right. No other lung mass or focal lobar consolidation, i.e., no new signs of pneumonia. CONCLUSION: Persistent suspicious abnormality left lung base. No acute new cardiopulmonary abnormality.
[2018-08-10] MEDS ORDERED: GI Cocktail Oral Solution 30 ML PO ONE (15:01)
== END 2018-08-10 15:21 | disposition home or self-care (01) ==
LOC: DL.ED 11:12
DX: J44.1 Chronic obstructive pulmonary disease with (acute) exacerbation (principal); B37.0 Candidal stomatitis; E11.21 Type 2 diabetes mellitus with diabetic nephropathy; E66.9 Obesity, unspecified; Z88.8 Allergy status to other drugs, medicaments and biological substances; Z91.09 Other allergy status, other than to drugs and biological substances; Z79.899 Other long term (current) drug therapy
CPT/HCPCS: 71046; 99283-25

== ENCOUNTER 2018-10-10 18:43 | Emergency (ER) | payer MEDICARE, BC ==
[2018-10-10 19:28] LABS: ANION GAP 16.8; CHLORIDE,CL 94 mmol/L (101-111); SODIUM,NA 133 mmol/L (135-145)
[2018-10-10 19:29] VITALS: BP 116/64
[2018-10-10] MEDS ORDERED: Potassium Chloride 20 MEQ in Premix Bag 1 BAG IV ONE (19:40)
[2018-10-10] MEDS ORDERED: Acetaminophen 325 MG Tab PO ONE (20:35)
--- NOTE | 2018-10-13 02:31 | EDM.PDOC ---
ED HPI GENERAL MEDICAL PROBLEM - General Chief Complaint: Neck Problem Stated Complaint: STIFF NECK, NUMBNESS IN LEFT HAND, NOT FEELING GOO Time Seen by Provider: 10/10/18 19:00 Source of Information: Reports: Patient History Limitations: Reports: No Limitations - History of Present Illness INITIAL COMMENTS - FREE TEXT/NARRATIVE: ED with c/o not feeling well . Woke this am with right lateral neck pain. Denies injury or fall. No radiation of pain. No chest pain or SOB. No nausea or vomiting. Little appetite or intake today due to neck pain and not wanting to move or get out of chair. Slight tingling in left thumb Right Neck Pain Score (Numeric/FACES): 5 - Related Data Allergies Allergy/AdvReac Type Severity Reaction Status Date / Time cefuroxime [From Ceftin] Allergy Mild Nausea and Verified 10/10/18 19:56 Vomiting metformin Allergy Diarrhea Verified 10/10/18 19:56 spironolactone AdvReac Diarrhea Verified 10/10/18 19:56 antifungal cream Allergy Hives Uncoded 10/10/18 19:56 dust mite extract Allergy Shortness Uncoded 10/10/18 19:56 of Breath seasonal Allergy Shortness Uncoded 10/10/18 19:56 of Breath Home Meds: Home Meds Allopurinol 300 mg PO DAILY 02/12/15 [History] Tamsulosin HCl 0.4 mg PO BEDTIME 02/12/15 [History] Fluticasone Propionate [Flovent HFA 110 MCG] 1 - 2 puff INH BID PRN 08/03/16 [ History] Gabapentin [Neurontin] 300 mg PO BEDTIME 11/06/16 [History] Lutein/Minerals/Vit A,C & E [Ocuvite] 1 tab PO DAILY 11/06/16 [History] Sennosides [Senna] 1 tab PO DAILY PRN 11/06/16 [History] Melatonin 5 mg PO BEDTIME PRN 11/09/16 [History] Nitroglycerin [Nitrostat] 1 tab SL ASDIRECTED PRN 02/11/18 [History] Albuterol Sulfate [Proair Hfa] 1 inh PO DAILY 06/10/18 [History] Esomeprazole [NexIUM] 40 mg PO DAILY 06/28/18 [History] Acetaminophen [Tylenol] 650 mg PO DAILY 08/19/18 [History] diphenhydrAMINE [Benadryl] 25 mg PO ASDIRECTED PRN 08/19/18 [History] Metoprolol Succinate [Toprol XL 50mg] 50 mg PO DAILY 09/23/18 [History] Insulin Aspart [NovoLOG] 10 unit SQ TIDMEALS 10/10/18 [History] Past Medical History HEENT History: Reports: Hard of Hearing, Impaired Vision Other HEENT History: WEARS CORRECTIVE LENS Cardiovascular History: Reports: Afib, Hypertension, Stents Respiratory History: Reports: Asthma, COPD, Sleep Apnea, Other (See Below) Other Respiratory History: LUNG NODULE Gastrointestinal History: Reports: Chronic Constipation, Hiatal Hernia Genitourinary History: Reports: BPH, Diabetic Nephropathy Musculoskeletal History: Reports: Arthritis, Back Pain, Chronic, Fracture, Gout , Osteoarthritis Neurological History: Reports: None Psychiatric History: Reports: None Endocrine/Metabolic History: Reports: Diabetes, Type II, Obesity/BMI 30+ Hematologic History: Reports: Anemia, Blood Transfusion(s), Other (See Below) Other Hematologic History: MYELODYSPLASTIC SYNDROME, PANCYTOPENIA Immunologic History: Reports: Immunosuppression Oncologic (Cancer) History: Reports: Leukemia Dermatologic History: Reports: Urticaria - Infectious Disease History Infectious Disease History: Reports: Chicken Pox, Measles Other Infectious Disease History: uncertain - Past Surgical History Head Surgeries/Procedures: Reports: None HEENT Surgical History: Reports: Cataract Surgery, Tonsillectomy Cardiovascular Surgical History: Reports: Coronary Artery Stent Respiratory Surgical History: Reports: Lung Biopsies GI Surgical History: Reports: Colonoscopy Male Surgical History: Reports: TURP-Transurethral Resection of Prostate Endocrine Surgical History: Reports: None Musculoskeletal Surgical History: Reports: Knee Replacement, Other (See Below) Other Musculoskeletal Surgeries/Procedures:: BACK SURG. LEFT KNEE REPLACEMENT Oncologic Surgical History: Reports: None Dermatological Surgical History: Reports: None Social & Family History - Family History Family Medical History: Noncontributory - Tobacco Use Smoking Status *Q: Former Smoker Used Tobacco, but Quit: Yes Month/Year Tobacco Last Used: 09/1992 - Caffeine Use Caffeine Use: Reports: Coffee Other Caffeine Use: AVERAGE 2-3 CUPS DAILY Caffeine Use Comment: 8 oz daily - Recreational Drug Use Recreational Drug Use: No ED ROS GENERAL - Review of Systems Review Of Systems: ROS reveals no pertinent complaints other than HPI. ED EXAM, GENERAL - Physical Exam Exam: See Below Exam Limited By: No Limitations General Appearance: Alert, Anxious, Mild Distress Eye Exam: Bilateral Eye: EOMI, PERRL Ears: Normal External Exam, Normal TMs Nose: Normal Inspection Throat/Mouth: Normal Inspection Head: Atraumatic, Normocephalic Neck: Normal Inspection, Tender Lateral (right). No: Tender Midline Respiratory/Chest: No Respiratory Distress, Lungs Clear, Normal Breath Sounds Cardiovascular: Normal Peripheral Pulses, Regular Rate, Rhythm. No: No Edema ( trace) GI/Abdominal: Normal Bowel Sounds, Soft Back Exam: Decreased Range of Motion, Paraspinal Tenderness. No: CVA Tenderness (L), CVA Tenderness (R), Vertebral Tenderness Extremities: Normal Inspection, Normal Range of Motion Neurological: Alert, Oriented, Normal Cognition, Normal Reflexes, No Motor/ Sensory Deficits Psychiatric: Normal Affect, Anxious Skin Exam: Warm, Dry, Intact, Normal Color Course - Vital Signs Last Recorded V/S: Last Vital Signs Temp 98.1 F 10/10/18 19:03 Pulse Resp 16 10/10/18 19:03 BP 116/64 10/10/18 19:03 Pulse Ox 95 10/10/18 19:03 - Orders/Labs/Meds Labs: Laboratory Tests 10/10/18 10/10/18 10/10/18 Range/Units 19:00 19:00 19:00 WBC 7.8 (5.0-10.0) 10^3/uL RBC 2.61 L (4.6-6.2) 10^6/uL Hgb 7.2 L D (14.0-18.0) g/dL Hct 23.6 L (40.0-54.0) % MCV 90.4 (80-100) fL MCH 27.6 (27.0-34.0) pg MCHC 30.5 L (33.0-35.0) g/dL Plt Count 64 L (150-450) 10^3/uL Neut % (Auto) (42.2-75.2) % Add Manual Diff Yes Neutrophils % (Manual) 82 H (42-75) % Band Neutrophils % 2 % Lymphocytes % (Manual) 9 L (20-50) % Monocytes % (Manual) 7 (2-8) % Nucleated RBCs 3 /100WBC PT 11.6 (9.0-12.0) SEC INR 1.2 (0.9-1.2) Sodium (135-145) mmol/L Potassium (3.6-5.0) mmol/L Chloride (101-111) mmol/L Carbon Dioxide (21.0-31.0) mmol/L Anion Gap BUN (7-18) mg/dL Creatinine (0.6-1.3) mg/dL Est Cr Clr Drug Dosing Estimated GFR (MDRD) BUN/Creatinine Ratio Glucose (74-105) mg/dL POC Glucose 164 H (83-110) mg/dl Lactic Acid (0.5-2.2) mmol/L Calcium (8.4-10.2) mg/dl Magnesium (1.8-2.5) mg/dL Total Bilirubin (0.2-1.0) mg/dL AST (10-42) IU/L ALT (10-60) IU/L Alkaline Phosphatase (42-121) IU/L Troponin I (0.00-0.02) ng/ml B-Natriuretic Peptide (0-100) pg/ml Total Protein (6.7-8.2) g/dl Albumin (3.2-5.5) g/dl Globulin Albumin/Globulin Ratio Urine Color (YELLOW) Urine Appearance (CLEAR) Urine pH (5.0-9.0) Ur Specific [place] (1.005-1.030) Urine Protein (NEGATIVE) Urine Glucose (UA) (NEGATIVE) Urine Ketones (NEGATIVE) Urine Occult Blood (NEGATIVE) Urine Nitrite (NEGATIVE) Urine Bilirubin (NEGATIVE) Urine Urobilinogen (0.2-1.0) mg/dL Ur Leukocyte Esterase (NEGATIVE) Urine RBC /HPF Urine WBC (0-5/HPF) /HPF Ur Epithelial Cells /HPF Amorphous Sediment (0/HPF) /HPF Urine Bacteria (0-FEW/HPF) /HPF Granular Casts /LPF 10/10/18 10/10/18 10/10/18 Range/Units 19:00 19:43 20:40 WBC (5.0-10.0) 10^3/uL RBC (4.6-6.2) 10^6/uL Hgb (14.0-18.0) g/dL Hct (40.0-54.0) % MCV (80-100) fL MCH (27.0-34.0) pg MCHC (33.0-35.0) g/dL Plt Count (150-450) 10^3/uL Neut % (Auto) (42.2-75.2) % Add Manual Diff Neutrophils % (Manual) (42-75) % Band Neutrophils % % Lymphocytes % (Manual) (20-50) % Monocytes % (Manual) (2-8) % Nucleated RBCs /100WBC PT (9.0-12.0) SEC INR (0.9-1.2) Sodium 133 L (135-145) mmol/L Potassium 2.8 L (3.6-5.0) mmol/L Chloride 94 L (101-111) mmol/L Carbon Dioxide 25.0 (21.0-31.0) mmol/L Anion Gap 16.8 BUN 22 H (7-18) mg/dL Creatinine 1.2 (0.6-1.3) mg/dL Est Cr Clr Drug Dosing TNP Estimated GFR (MDRD) 58 BUN/Creatinine Ratio 18.33 Glucose 168 H (74-105) mg/dL POC Glucose (83-110) mg/dl Lactic Acid 1.0 (0.5-2.2) mmol/L Calcium 7.0 L D (8.4-10.2) mg/dl Magnesium 1.1 L (1.8-2.5) mg/dL Total Bilirubin 0.8 (0.2-1.0) mg/dL AST 23 (10-42) IU/L ALT 7 L (10-60) IU/L Alkaline Phosphatase 73 (42-121) IU/L Troponin I 0.10 H* (0.00-0.02) ng/ml B-Natriuretic Peptide 361 H (0-100) pg/ml Total Protein 6.3 L (6.7-8.2) g/dl Albumin 2.4 L (3.2-5.5) g/dl Globulin 3.9 Albumin/Globulin Ratio 0.62 Urine Color Yellow (YELLOW) Urine Appearance Clear (CLEAR) Urine pH 6.5 (5.0-9.0) Ur Specific [place] 1.015 (1.005-1.030) Urine Protein 100 H (NEGATIVE) Urine Glucose (UA) 100 H (NEGATIVE) Urine Ketones Negative (NEGATIVE) Urine Occult Blood Trace-intact H (NEGATIVE) Urine Nitrite Negative (NEGATIVE) Urine Bilirubin Small H (NEGATIVE) Urine Urobilinogen 1.0 (0.2-1.0) mg/dL Ur Leukocyte Esterase Negative (NEGATIVE) Urine RBC 0-5 /HPF Urine WBC 10-20 H (0-5/HPF) /HPF Ur Epithelial Cells Many H /HPF Amorphous Sediment Few (0/HPF) /HPF Urine Bacteria Moderate H (0-FEW/HPF) /HPF Granular Casts Few /LPF Meds: Medications Discontinued Medications Generic Name Dose Route Start Last Admin Trade Name Purnima PRN Reason Stop Dose Admin Acetaminophen 650 mg 10/10/18 20:35 10/10/18 20:39 Tylenol PO 10/10/18 20:36 650 mg NOW ONE Administration Potassium Chloride 20 meq/ 100 mls @ 50 mls/hr 10/10/18 19:40 10/10/18 20:04 Premix IV 10/10/18 21:39 50 mls/hr ONETIME ONE Administration Departure - Departure Time of Disposition: 06:38 Disposition: DC/Tfer to Acute Hospital 02 Condition: Undetermined Clinical Impression: Elevated troponin, Neck pain on right side, Hypokalemia Anemia Qualifiers: Anemia type: unspecified type Qualified Code(s): D64.9 - Anemia, unspecified Leukemia Qualifiers: Leukemia type: chronic, unspecified type Leukemia Active/Remission status: without remission Qualified Code(s): 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
== END 2018-10-10 21:10 ==
LOC: DL.ED 18:43
DX: M54.2 Cervicalgia (principal); E87.6 Hypokalemia; C95.10 Chronic leukemia of unspecified cell type not having achieved remission; D64.9 Anemia, unspecified; R79.89 Other specified abnormal findings of blood chemistry; I48.91 Unspecified atrial fibrillation; I10 Essential (primary) hypertension; E11.21 Type 2 diabetes mellitus with diabetic nephropathy; Z88.1 Allergy status to other antibiotic agents; Z79.899 Other long term (current) drug therapy; Z79.4 Long term (current) use of insulin; Z87.891 Personal history of nicotine dependence
CPT/HCPCS: 36415; 70450; 72125; 80053; 81001; 82962; 83605; 83735; 83880; 84484; 85025; 85610; 87040; 93005; 96365; 99285; A4217; A9270; J3480

== ENCOUNTER 2018-10-14 11:02 | Inpatient (IN) | payer MEDICARE, BC ==
[2018-10-14] MEDS ORDERED: Polyethylene Glycol 3350 Powder 17 GM Packet PO PRN (12:57)
[2018-10-14] MEDS ORDERED: Magnesium Hydroxide 400 MG/5 ML Susp 30 ML Cup PO PRN (12:57)
[2018-10-14] MEDS ORDERED: Ondansetron 4 MG Tab.DIS PO PRN (12:57)
[2018-10-14] MEDS ORDERED: Albuterol/Ipratropium 3.0-0.5 MG/3 ML Neb Soln NEB PRN (12:57)
[2018-10-14] MEDS ORDERED: Nitroglycerin 0.4 MG Tab.SL SL PRN (13:02)
[2018-10-14] MEDS ORDERED: Triamcinolone Acetonide 0.1% Oint 15 GM Tube TOP PRN (13:02)
[2018-10-14] MEDS ORDERED: Albuterol/Ipratropium 3.0-0.5 MG/3 ML Neb Soln INH PRN (13:02)
[2018-10-14] MEDS ORDERED: diphenhydrAMINE 25 MG Tab PO PRN (13:02)
[2018-10-14] MEDS ORDERED: Acetaminophen 325 MG Tab PO PRN (13:02)
[2018-10-14] MEDS ORDERED: 50% Dextrose in Water 50 ML Syringe IVPUSH PRN (13:05)
[2018-10-14] MEDS: Insulin Lispro 100 Units/ML 3 ML Vial SUBCUT SCH ×2 (17:59→18:01)
--- NOTE | 2018-10-14 18:35 | HP ---
HISTORY OF PRESENT ILLNESS: Mr. 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 The patient also has history of coronary artery disease, requiring stents placed in the past. The patient had stents to the mid RCA in 2004, drug-eluting stent, and cardiac catheterization in 2006 showed patent stents and normal cardiac stress test in 2009 and 2014. The patient also has history of paroxysmal atrial fibrillation, on chronic anticoagulation with Xarelto in the past, but discontinued secondary to his myelodysplastic syndrome resulting in severe anemia and thrombocytopenia, presented to [place] [facility] with chest pain and was noted to have possible elevated troponin and got transferred to [facility]. He was admitted there at [facility] in [place] on 10/11/2018 and got discharged to Swing Bed here for further physical therapy and occupational therapy for generalized debility. At this time, the patient complains of having neck pain, which is mostly in the lower neck. Rates it as 7/10 in intensity, aggravated on movement and ambulation, relieved partially with pain medication, nonradiating type of pain, not associated with nausea or vomiting. Denies any chest pain. No shortness of breath. No abdominal pain. No fevers. No chills. No cough. No sputum. The patient also complains of having tingling and numbness to his left hand, which has been chronic in nature. The patient denied any history of chest pains on exertion, but has mild dyspnea on exertion secondary to his COPD. Denies any hematemesis, hematochezia, or melenic stools. Normal bowel and bladder habits otherwise. REVIEW OF SYSTEMS: A complete review of systems including skin; ear, nose, and throat; cardiovascular system; respiratory system; gastrointestinal system; genitourinary system; hematology; oncology; neurology; allergy; immunology; constitutional were all evaluated and were negative except for the above-said notes. PAST MEDICAL HISTORY: Significant for: 1. Hypertension. 2. Hyperlipidemia. 3. Type 2 diabetes mellitus. 4. Coronary artery disease, status post stents placed to the RCA. 5. Chronic obstructive pulmonary airway disease. 6. History of myelodysplastic syndrome. 7. Anemia and thrombocytopenia requiring multiple blood transfusions. 8. Paroxysmal atrial fibrillation, not on any anticoagulation secondary to thrombocytopenia. PAST SURGICAL HISTORY: Significant for: 1. Transurethral resection of the prostate. 2. Tonsillectomy and adenoidectomy. 3. Skin biopsy. 4. Spine surgery. 5. Nasal repair. 6. Eye surgery. 7. Coronary angioplasty with stent placed to the RCA. 8. Cataract removal. FAMILY HISTORY: Significant for diabetes in his father and diabetes in his maternal and paternal grandmother and grandfather. SOCIAL HISTORY: History of smoking tobacco in the past, but quit smoking in 1971. History of chronic alcohol use. ALLERGIES: Noted to have allergies to antifungal creams, seasonal allergies, dust mite extract, Augmentin, Ceftin, metformin, Spironazide. HOME MEDICATIONS: Include: 1. Triamcinolone topical twice a day as needed. 2. Nexium 40 mg daily. 3. Albuterol with ipratropium 3 mL inhalation 3 times a day as needed. 4. Benadryl 25 mg as needed. 5. Neurontin 300 mg at bedtime. 6. Tylenol 650 daily as needed. 7. Tamsulosin 0.4 mg at bedtime. 8. Nitroglycerin 1 tablet sublingual as needed. 9. Toprol-XL 50 mg daily. 10.Melatonin 5 mg at bedtime. 11.Insulin NovoLog 10 units 3 times a day. 12.Allopurinol 300 mg daily. PHYSICAL EXAMINATION: Vital Signs: Temperature of 98.6, pulse of 77, blood pressure 145/66, respiratory rate of 18, and saturating at 97% on room air. General Appearance: The patient is well oriented to time, place, and person. Follows commands spontaneously. Cardiovascular System: S1 and S2 heard with normal intensity. No gallops. Respiratory System: Clear to auscultation bilaterally. No wheeze. No crepitations. Abdomen: Soft. Bowel sounds positive. Nontender. No rigidity. Extremities: Mild edema noted in bilateral lower extremities. Neurology: No gross focal neurological deficits. LABORATORY DATA: Labs as I reviewed from [facility] show sodium 134, potassium 3.8 chloride 102, bicarb 25.4, creatinine 0.9, BUN 11. WBC 6.3, hemoglobin 8.8, hematocrit 27.5, platelet count of 51. ASSESSMENT: 1. Generalized debility. 2. Chronic paresthesias, on Neurontin. 3. Neck pain. 4. Hypertension. 5. Type 2 diabetes mellitus. 6. Hyperlipidemia. 7. Coronary artery disease, status post stents to the RCA. 8. Myelodysplastic syndrome with severe anemia and thrombocytopenia. 9. Anemia and thrombocytopenia requiring multiple blood transfusions. PLAN: 1. Generalized debility. The patient has been admitted to [facility] and noted to have negative troponins. The patient continues to have neck pain and paresthesias to the left upper extremity. The patient will be evaluated by Physical Therapy and Occupational Therapy and help to ambulate. 2. Anemia and thrombocytopenia. The patient was noted to have worsening anemia requiring blood transfusions while at [facility]. He required at least 3 units of packed red blood cell transfusion. We will closely follow. We will recheck a CBC in a.m. 3. Hypertension. The patient's blood pressure seems to be slightly elevated. Continue with current antihypertensive medication. 4. Chronic obstructive pulmonary disease. The patient noted to be on inhalation treatments. Continue the same. 5. Coronary artery disease. The patient denies any ongoing chest pain. Continue with beta-jess. He is not on any Plavix or aspirin secondary to thrombocytopenia. 6. Atrial fibrillation, rate controlled. Continue with Toprol-XL. Again, not on any anticoagulation secondary to anemia and thrombocytopenia and Oncology has recommended to not start him on any anticoagulation in the past. 7. Code status. The patient wants to be DNR/DNI. 8. Discussed with family members at bedside. 9. Reviewed the labs and medications. Reviewed the charts obtained from [facility]. [facility] /[id number]
[2018-10-14] MEDS: Acetaminophen 325 MG Tab PO PRN (19:58)
[2018-10-14] MEDS: Tamsulosin 0.4 MG Cap.ER PO SCH (20:38)
[2018-10-14] MEDS: Gabapentin 300 MG Cap PO SCH (20:38)
[2018-10-14] MEDS ORDERED: Melatonin 3 MG Tab PO PRN (21:00)
[2018-10-14] MEDS ORDERED: FLUTICASONE PROPIONATE INH SCH (21:00)
[2018-10-14] MEDS ORDERED: Sodium Chloride 0.9% 10 ML Syringe FLUSH PRN (22:05)
[2018-10-15] MEDS: Acetaminophen 325 MG Tab PO PRN (05:28)
[2018-10-15 06:33] LABS: ANION GAP 13.5; CHLORIDE,CL 98 mmol/L (101-111); SODIUM,NA 132 mmol/L (135-145)
[2018-10-15] MEDS: Insulin Lispro 100 Units/ML 3 ML Vial SUBCUT SCH ×7 (09:01→21:02)
[2018-10-15] MEDS: Lutein/Minerals/Vit A,C & E Tab PO SCH (09:01)
[2018-10-15] MEDS: Allopurinol 300 MG Tab PO SCH (09:01)
[2018-10-15] MEDS: Metoprolol Succinate 50 MG Tab.ER PO SCH (09:03)
[2018-10-15] MEDS: Potassium Chloride 10 MEQ Tab.ER PO SCH ×2 (12:44→17:55)
[2018-10-15] MEDS: guaiFENesin 100 MG/5 ML Soln 5 ML UD Cup PO PRN (18:38)
[2018-10-15] MEDS: Tamsulosin 0.4 MG Cap.ER PO SCH (20:52)
[2018-10-15] MEDS: Gabapentin 300 MG Cap PO SCH (20:52)
[2018-10-15] MEDS ORDERED: Insulin Glarg,Human.Rec.Analog 100 Unit/ML SUBCUT SCH (21:00)
[2018-10-16] MEDS: guaiFENesin 100 MG/5 ML Soln 5 ML UD Cup PO PRN (02:40)
[2018-10-16] MEDS: Insulin Lispro 100 Units/ML 3 ML Vial SUBCUT SCH ×2 (08:32→12:56)
[2018-10-16] MEDS ORDERED: Sodium Chloride 0.9% 500 ML IV ONE ×2 (08:45→11:15)
[2018-10-16] MEDS: Potassium Chloride 10 MEQ Tab.ER PO SCH (09:43)
[2018-10-16] MEDS: Allopurinol 300 MG Tab PO SCH (09:44)
[2018-10-16] MEDS: Lutein/Minerals/Vit A,C & E Tab PO SCH (09:44)
[2018-10-16] MEDS: Metoprolol Succinate 50 MG Tab.ER PO SCH (09:44)
[2018-10-16 11:24] LABS: CHLORIDE,CL 99 mmol/L (101-111); SODIUM,NA 132 mmol/L (135-145)
[2018-10-16 12:33] VITALS: BP 104/61; PULSE 120
[2018-10-16] MEDS: Acetaminophen 325 MG Tab PO PRN (12:57)
--- NOTE | 2018-10-16 16:04 | DISCH ---
ADMITTING DIAGNOSIS: Generalized debility, requiring physical therapy and occupational therapy. Admitted to swing bed. DISCHARGE DIAGNOSES: 1. Left-sided empyema. 2. Moderate left-sided pleural effusion, requiring chest tube placement and transferred to higher level of care. 3. [id number] pericardial effusion, needing echocardiogram and Cardiology evaluation and higher level of care. 4. Hypotension with tachycardia. HISTORY OF PRESENTING ILLNESS: Mr. Pascual Crowe is a 78-year-old male with a medical history significant for hypertension, hyperlipidemia, type 2 diabetes mellitus, chronic obstructive pulmonary disease, history of myelodysplastic syndrome with anemia and thrombocytopenia, requiring multiple blood transfusions; coronary artery disease, status post stents placed to the RCA in the past. Transferred from [facility] after he was admitted there for elevated troponin. He was admitted to the swing bed for continued physical therapy and occupational therapy, but while in the Swing Bed, the patient noted to have fever, a temperature of 100.1. Urinalysis did not suggest any evidence of infection, but the patient started developing complications with tachycardia where his heart rate was in the range of 120 to 139. He was closely monitored on the telemetry and he was hypotensive with blood pressure in the range of 71/43 to 89/63, requiring fluid boluses. We did further workup including a chest x-ray, which showed evidence of left-sided pleural effusion. Then we proceed on to get a CT scan of the chest which showed evidence of left-sided empyema along with moderate size pleural effusion on the left side and a small to moderate-sized pericardial effusion. He would need Intervention Radiology consultation for possible left side Chest tube placement and also Cardiology evaluation for moderate-sized pericardial effusion, leading to hypotension and tachycardia. He responded well to the fluid boluses. He is discharged to [facility] in stable condition. DISCHARGE MEDICATIONS: Include: 1. Tylenol 650 as needed for pain. 2. DuoNeb 3 mL inhalation 3 times a day as needed. 3. Allopurinol 300 mg daily. 4. Nexium 40 mg daily. 5. Ferrous sulfate 325 mg daily. 6. Flovent 2 puffs inhalation twice a day. 7. Neurontin 300 mg at bedtime. 8. Insulin Lantus 25 units at bedtime. 9. Multivitamin 1 tablet once daily. 10.Magnesium oxide 250 mg twice daily. 11.Melatonin 5 mg at bedtime as needed. 12.Toprol-XL 50 mg daily. 13.Nitroglycerin 0.4 mg sublingual as needed for chest pain. 14.MiraLax 17 g oral daily. 15.Potassium chloride 20 mEq twice daily. 16.Tamsulosin 0.4 mg at bedtime. 17.Triamcinolone cream topical as needed for itching. 18.Benadryl 25 mg as needed. 19.Robitussin 100 mg every 8 hours as needed for cough. PHYSICAL EXAMINATION: On the day of discharge: Vital Signs: Temperature of 98.6, pulse of 129, blood pressure 116/56, respiratory rate of 20, and saturating at 98% on 2 L of oxygen. General Appearance: The patient is well oriented to time, place, and person. Follows commands spontaneously. Cardiovascular: S1 and S2 heard with normal intensity. No gallops. Respiratory: Clear to auscultation bilaterally except for decreased breath sounds on the left lower lobe and dull to percussion on the left lower lobe. Abdomen: Soft. Bowel sounds positive. Nontender. No rigidity. Extremities: No edema of bilateral lower extremity. CONDITION ON ADMISSION: Fair. CONDITION ON DISCHARGE: Stable. DISPOSITION: Discharged to [facility] for consultation with Intervention Radiology for left-sided chest tube placement and consultation with Cardiology for further evaluation of the moderate size pericardial effusion with echocardiogram. DIET: Cardiac healthy diet and consistent carbohydrate diet. FOLLOWUP: Follow with primary care physician in 1 week post discharge from [facility]. TIME SPENT: Spent over 35 minutes of time in evaluating and treating this patient and making discharge plan. [facility] /[id number] SARAH
[2018-10-16] MEDS ORDERED: Insulin Glarg,Human.Rec.Analog 100 Unit/ML SUBCUT SCH (21:00)
--- NOTE | 2018-10-18 17:33 | EKG ---
10/16/2018 - ANTOINE KNAPP - INTERPRETATION: 12-lead EKG. FINDINGS: A 12-lead EKG shows some normal sinus rhythm with sinus tachycardia with no significant ST elevation or ST depression. Nonspecific ST-T wave changes noted on lead V2, V3. [facility] /[id number]
== END 2018-10-16 16:15 | DRG 314 ==
LOC: DL.MS 11:02
PROVIDERS: ADMIT Internal Medicine; ATTEND Internal Medicine
DX: I31.3 Pericardial effusion (noninflammatory) (principal); J86.9 Pyothorax without fistula; J90 Pleural effusion, not elsewhere classified; Z66 Do not resuscitate; I95.9 Hypotension, unspecified; R00.0 Tachycardia, unspecified; I10 Essential (primary) hypertension; E78.5 Hyperlipidemia, unspecified; E11.9 Type 2 diabetes mellitus without complications; J44.9 Chronic obstructive pulmonary disease, unspecified; I25.10 Atherosclerotic heart disease of native coronary artery without angina pectoris; I48.0 Paroxysmal atrial fibrillation; R53.81 Other malaise; R20.2 Paresthesia of skin; M54.2 Cervicalgia; D46.9 Myelodysplastic syndrome, unspecified; D69.6 Thrombocytopenia, unspecified; Z95.5 Presence of coronary angioplasty implant and graft; Z79.01 Long term (current) use of anticoagulants; Z98.49 Cataract extraction status, unspecified eye; Z87.891 Personal history of nicotine dependence; Z88.1 Allergy status to other antibiotic agents; Z88.8 Allergy status to other drugs, medicaments and biological substances; Z91.048 Other nonmedicinal substance allergy status
CPT/HCPCS: 36415; 71045; 71250; 72170; 80048; 81001; 82962; 83735; 85027; 93005; 97162-GP; 97166-GO; A9270-GY; J1815; J1815-GY; J7040; J7620-GY